=== PATIENT | female | born 1940 | race Caucasian/White ===

== ENCOUNTER 2023-03-21 09:27 | Outpatient (REF) | payer MEDICARE, SELFPAY ==
--- NOTE | ~2023-03-21 | XR_ITS ---
EXAMINATION: XR CHEST CLINICAL INFORMATION: SIADH. Rule out lung lesion. COMPARISON: None available. TECHNIQUE: 2 views of the chest were obtained. FINDINGS: The cardiac and mediastinal contours are normal. There is a 1.7 x 2 cm round density that projects over the right upper lung. It is uncertain whether this is related to right first rib or represents pulmonary nodule. There is pleural-based density seen posterior to the upper sternum or manubrium on the lateral view. The lungs are otherwise clear. No pleural effusion or pneumothorax. Degenerative changes of the spine. XR/XR chest 2V IMPRESSION: 1.7 x 2 cm nodular density projecting over the right upper lung. Follow-up chest CT recommended.
== END 2023-03-21 09:28 | disposition home or self-care (01) ==
LOC: HO.XRAY 09:27
PROVIDERS: PCP Family Medicine; Visit Provider Internal Medicine Gastroenterology
DX: E22.2 Syndrome of inappropriate secretion of antidiuretic hormone (principal); R05.9 Cough, unspecified; K21.9 Gastro-esophageal reflux disease without esophagitis; D49.0 Neoplasm of unspecified behavior of digestive system
CPT/HCPCS: 71046; 99212

== ENCOUNTER 2023-05-23 09:07 | Outpatient (REF) | payer MEDICARE, SELFPAY ==
[2023-05-23 10:59] LABS: Alanine Aminotransferase 28 U/L (0-31); Albumin Level 4.1 g/dL (3.5-5.0); Alkaline Phosphatase 68 U/L (39-117); Anion Gap 12 (12-20); Aspartate Amino Transferase 35 U/L (5-31); Bilirubin Total 0.9 mg/dL (0.0-1.0); Blood Urea Nitrogen 15 mg/dL (9-16); Calcium 9.4 mg/dL (8.4-10.2); Carbon Dioxide 22 mmol/L (22-29); Chloride 106 mmol/L (96-108); Estimated Glomerular Filt Rate > 60; Glucose Random 120 mg/dL (60-115); Potassium 4.6 mmol/L (3.3-5.1); Sodium 135 mmol/L (135-145); Total Protein 6.5 g/dL (6.5-8.0)
== END 2023-05-23 09:08 | disposition home or self-care (01) ==
LOC: HO.LAB 09:07
PROVIDERS: Visit Provider Internal Medicine Gastroenterology
DX: K75.81 Nonalcoholic steatohepatitis (NASH) (principal)
CPT/HCPCS: 36415; 80053

== ENCOUNTER 2023-06-04 07:37 | Outpatient (REF) | payer MEDICARE, SELFPAY ==
--- NOTE | ~2023-06-04 | CT_ITS ---
EXAMINATION: CT CHEST WITH CONTRAST CLINICAL INFORMATION: SIADH. Pulmonary nodule seen on chest x-ray. COMPARISON: Previous chest x-ray February 2023 abdominal MRI 2018 2019 TECHNIQUE: Multidetector volumetric CT imaging of the chest was obtained after the administration of 65 mL of Omnipaque 350 intravenous contrast without immediate adverse reactions. Axial MIP volume rendering provided. Sagittal and coronal reformatted images were obtained. This CT examination was performed using dose optimization techniques as appropriate, variously including the following: *Automated exposure control *Adjustment of mA and/or kV according to patient size (this includes techniques or standardized protocols for targeted exams where dose is matched to indication/reason for exam; i.e. extremities or head) *Use of iterative reconstruction technique DLP: 114 mGy-cm FINDINGS: HAT SIZER: LUNGS: No pulmonary mass or nodule. Chest x-ray finding corresponds to prominent right first rib costochondral cartilage Linear scarring or subsegmental atelectasis in the anterior left upper lobe and bilateral lower lobes at the lung bases. MEDIASTINUM: The heart size is normal. There is moderate coronary artery calcification. No pericardial effusion. No enlarged hilar or mediastinal lymph nodes. Small subcentimeter bilateral thyroid nodules. No imaging follow-up recommended. PLEURA: There is no pleural effusion. No pleural mass or thickening. AXILLA: No lymphadenopathy. UPPER ABDOMEN: The liver is low in attenuation suggestive of fatty infiltration. There is several liver cysts. Largest is a 1.5 cm cyst in the left lobe of the liver. The gallbladder has been removed. There is intrahepatic and extrahepatic biliary duct dilatation. The common bile duct measures 1.6 cm. This is increased from previous MRI. There are innumerable pancreatic cysts. There is mild dilatation of the main pancreatic duct in the head of the pancreas measuring up to 5 minutes. This appears increased from previous MRI as well. OSSEOUS STRUCTURES: Degenerative changes of the spine. CT/CT chest w IV con IMPRESSION: No pulmonary nodule or mediastinal lymphadenopathy. Chest x-ray finding likely corresponds to prominent right first rib costochondral cartilage. Increasing intra and extrahepatic biliary duct dilatation. Increasing dilatation of the main pancreatic duct. Multiple pancreatic cysts. Further evaluation with MR of the pancreas with and without contrast and MRCP recommended. Fleischner guidelines were followed. Findings were indicated by the Benson work flow senior clinical study manager.
[2023-06-04] MEDS: iohexoL 350 MG/ML 100 ML INFUS..BTL IV (08:51)
== END 2023-06-04 07:38 | disposition home or self-care (01) ==
LOC: HO.CT 07:37
PROVIDERS: PCP Family Medicine; Visit Provider Internal Medicine Gastroenterology
DX: E22.2 Syndrome of inappropriate secretion of antidiuretic hormone (principal); R91.1 Solitary pulmonary nodule
CPT/HCPCS: 71260; Q9967

== ENCOUNTER 2023-06-27 09:48 | Outpatient (AMB) | payer MEDICARE, SELFPAY ==
--- NOTE | 2023-06-27 10:01 | MHC.OFFVIS ---
Intake Vital Signs 06/27/23 10:02 Height 5 ft 4 in Weight 130 lb 1.164 oz BMI 22.3 Intake Visit Reasons: 3 mnth follow up Intake Note: Sola presents in the office as a 3 month follow up. CC: She states that she is not having any concerns today. Allergies levofloxacin [From LEVAQUIN] Allergy (Severe, Unverified 06/27/23 10:03) FAINTING metoclopramide [From REGLAN] Allergy (Severe, Unverified 06/27/23 10:03) PERSONALITY CHANGES-COMBATIVE Iodinated Contrast Media [Iodinated Contrast Media - IV Dye] Adverse Reaction (Intermediate, Unverified 06/27/23 10:03) VERTIGO, FLUSHING reglan Allergy (Mild, Uncoded 06/27/23 10:03) Unknown STATins Allergy (Mild, Uncoded 06/27/23 10:03) Unknown IVP DYE Allergy (Unknown, Uncoded 06/27/23 10:03) Unknown HPI 3 mnth follow up HPI Details 82 yr old f wth hx of HLp, HTN, osteoporosis, cholecystectomy, sigmoid colectomy w rectopexy, and asthma being seen for f/u RECAP Initially seen by me 11/2018 for abdo pain and abn bowel habit 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, was gettign serial chromogranin checks last EGD,colo 2019--no recurrence of NET< small tubular adenoma removed she also had hx of imaging with chronic pancreatitis and possible IPMN, slightly dilated panc duct with recent MRI revealing increase in size of cysts in the uncinate and tail of pancreas I ordered a CT chest due to CXR with nodular density and hx of low NA CT chest revealed prominent rib without any lung lesions, scarrign noted, increased biliary dilation and numerous pancreas cysts INTERIM: she has trouble with swallowing, noted mostly solids, ok with liquids which has persisted has metallic taste in mouth still maya sissues with passing stools which is not normal for her still taking colace, and benefiber, not that helpful ongoing qns about pancreas cysts, she doesn;t know what to do EXAM: GENERAL: The patient is relaced VITAL SIGNS:see workflow HEENT: Nonicteric sclerae, PERRLA, EOMI. Oropharynx clear. Moist mucous membranes. Conjunctivae appear well perfused. No thyroid mass. CHEST: Chest wall is nontender. HEART: Regular rate and rhythm without murmurs. LUNGS: Clear to auscultation bilaterally. ABDOMEN: Soft, positive bowel sounds, nontender, no organomegaly.no flank tenderness SKIN: No rash, no excessive bruising, petechiae, or purpura. NEUROLOGIC: Cranial nerves II-XII intact without motor/sensory deficit. A/P; 1/ Constipation, possibly related to hyponatremia but NA improved now 2/ dysgeusia, prob reflux, but on PPI, maybe not be working ddx: esophageal lesion bella with the swallowing issues 3/ IPMN< PD 6 mm, largest cyst about 2 cm on latest MRI scan, she is not keen on surgery (pancreas cysts can also be associated with higher risk for colon polyps and crc)--might need checked for [facility] ([facility]) PLAN: 1/ egd and colo for abn bowel habits, and r/o esophgeal pathology 2/ discussed options with her for pancreas cysts, incl [place] [facility] [facility], or local referral for EUS vs doing nothing, she is concerned about undergoing major surgery given her health issues, she might need whipple with total removal of pancreas given cysts are numerous and thru out the pancreas (CT also with dense coronary calcification) 3/[facility] Surgical History Hx of appendectomy Hx of cholecystectomy History of hip replacement Hx of hysterectomy History of colon resection Hx of colonoscopy History of esophagogastroduodenoscopy (EGD) Physical Exam Vital Signs: BMI result Body Mass Index 22.3 Assessment & Plan Assessment & Plan (1) IPMN (intraductal papillary mucinous neoplasm): Code(s): D49.0 - Neoplasm of unspecified behavior of digestive system Medications: New sodium,potassium,mag sulfates 17.5-3.13-1.6 gram (Suprep Bowel Prep Kit) DILUTE; drink 1/2 at 6-8 pm and half at 11 PM- 1AM 354 mL 0RF Coding Level of Care Code Est Pt Level 4 (10014) Diagnoses IPMN (intraductal papillary mucinous neoplasm) D49.0
[2023-06-27 10:02] VITALS: BMI 22.3
== END 2023-06-27 11:58 | disposition home or self-care (01) ==
PROVIDERS: PCP Family Medicine; Visit Provider Internal Medicine Gastroenterology
DX: D49.0 Neoplasm of unspecified behavior of digestive system (principal)
CPT/HCPCS: 99214

== ENCOUNTER → 2023-06-27 09:48 | Outpatient (BNVA) | payer MEDICARE, SELFPAY | PROVIDERS: PCP Family Medicine; Visit Provider Internal Medicine Gastroenterology | DX: D49.0 Neoplasm of unspecified behavior of digestive system (principal) | CPT/HCPCS: 99212 ==

== ENCOUNTER 2023-07-08 10:08 | Day surgery (SDC) | payer MEDICARE, SELFPAY ==
--- NOTE | 2023-07-04 11:06 | HO.ANESPROP2 ---
Documented by User: Kayla Mann NP 07/04/23 11:08 HPI - Anesthesia Eval Consult details Narrative: 82yo F for Upper Endoscopy and Colonoscopy PMFSH Active Problems Active Problems: All Active Problems (Updated 03/27/23 @ 15:12 by Kennedi Macario MD) Lesion of lung (Acute) GERD (gastroesophageal reflux disease) (Acute) IPMN (intraductal papillary mucinous neoplasm) (Acute) Cough (Acute) SIAD (syndrome of inappropriate antidiuresis) (Acute) Surgical History Surgical History Hx of appendectomy Hx of cholecystectomy History of hip replacement Hx of hysterectomy History of colon resection Hx of colonoscopy History of esophagogastroduodenoscopy (EGD) Social History Social History Patient Tobacco Use Status: Former Tobacco user Smoked in Last 30 Days: No Use of substances other than those prescribed or required for medical reasons: No Are you DNR?: No Advance Directives: No Advance Directives Information Provided: Yes Meds Allergies Allergy/AdvReac Type Severity Reaction Status Date / Time levofloxacin [From LEVAQUIN] Allergy Severe FAINTING Verified 07/08/23 10:27 metoclopramide [From REGLAN] Allergy Severe PERSONALITY Verified 07/08/23 10:27 CHANGES-COMBATIVE Iodinated Contrast Media AdvReac Intermediate VERTIGO, Verified 07/08/23 10:27 [Iodinated Contrast Media - FLUSHING IV Dye] reglan Allergy Mild Unknown Uncoded 07/08/23 10:27 STATins Allergy Mild Muscle Uncoded 07/08/23 10:27 cramps IVP DYE Allergy Unknown Unknown Uncoded 07/08/23 10:27 Home Medications Medication Instructions Recorded Confirmed Last Taken Type allopurinol 300 mg tablet 300 mg PO DAILY 03/21/23 07/08/23 07/08/23 History biotin 10,000 mcg capsule 10,000 mcg PO DAILY 03/21/23 07/08/23 Unknown History doxazosin 2 mg tablet 2 mg PO DAILY 03/21/23 07/08/23 07/08/23 History gabapentin 100 mg capsule 100 mg PO QID 03/21/23 07/08/23 Unknown History montelukast 10 mg tablet 10 mg PO BEDTIME 03/21/23 07/08/23 Unknown History rosuvastatin 20 mg tablet (Crestor) 10 mg PO DAILY 03/21/23 07/08/23 07/08/23 History valsartan 80 mg tablet 80 mg PO BID 03/21/23 07/08/23 07/08/23 History aspirin 81 mg tablet,delayed 81 mg PO .two times a week 06/27/23 07/08/23 07/04/23 History release (Adult Aspirin Regimen) Exam Exam Date and Time: July 04, 2023 1106 Pertinent Lab Results Pertinent Lab Results: Laboratory Tests 05/23/23 09:16 Sodium 135 Potassium 4.6 Chloride 106 Carbon Dioxide 22 BUN 15 Creatinine 0.82 Assessment and Plan Assessment Anesthesia Assessment: Chart Reviewed Documented by User: Monique Anne MD 07/08/23 10:58 PMF Family History Family history of problems with anesthesia: No Surgical History Surgical History Hx of appendectomy Hx of cholecystectomy History of hip replacement Hx of hysterectomy History of colon resection Hx of colonoscopy History of esophagogastroduodenoscopy (EGD) History of Problems with Anesthesia: No Social History Social History Patient Tobacco Use Status: Former Tobacco user Smoked in Last 30 Days: No Use of substances other than those prescribed or required for medical reasons: No Are you DNR?: No Advance Directives: No Advance Directives Information Provided: Yes Meds Allergies Allergy/AdvReac Type Severity Reaction Status Date / Time levofloxacin [From LEVAQUIN] Allergy Severe FAINTING Verified 07/08/23 10:27 metoclopramide [From REGLAN] Allergy Severe PERSONALITY Verified 07/08/23 10:27 CHANGES-COMBATIVE Iodinated Contrast Media AdvReac Intermediate VERTIGO, Verified 07/08/23 10:27 [Iodinated Contrast Media - FLUSHING IV Dye] reglan Allergy Mild Unknown Uncoded 07/08/23 10:27 STATins Allergy Mild Muscle Uncoded 07/08/23 10:27 cramps IVP DYE Allergy Unknown Unknown Uncoded 07/08/23 10:27 Home Medications Medication Instructions Recorded Confirmed Last Taken Type allopurinol 300 mg tablet 300 mg PO DAILY 03/21/23 07/08/23 07/08/23 History biotin 10,000 mcg capsule 10,000 mcg PO DAILY 03/21/23 07/08/23 Unknown History doxazosin 2 mg tablet 2 mg PO DAILY 03/21/23 07/08/23 07/08/23 History gabapentin 100 mg capsule 100 mg PO QID 03/21/23 07/08/23 Unknown History montelukast 10 mg tablet 10 mg PO BEDTIME 03/21/23 07/08/23 Unknown History rosuvastatin 20 mg tablet (Crestor) 10 mg PO DAILY 03/21/23 07/08/23 07/08/23 History valsartan 80 mg tablet 80 mg PO BID 03/21/23 07/08/23 07/08/23 History aspirin 81 mg tablet,delayed 81 mg PO .two times a week 06/27/23 07/08/23 07/04/23 History release (Adult Aspirin Regimen) Exam Airway Mallampati Class: II TM Dist: >3cm Neck ROM: Limited Denture: Upper Heart: rrr Lungs: cta Assessment and Plan Assessment Anesthesia Assessment: Anesthesia Plan Discussed Final Anesthetic Review Family History of Problems with Anesthesia: No History of Problems with Anesthesia: No NPO: Yes ASA Class: III Final Preanesthetic Review: No Changes in Pt Med Stat, Meds/Allgs Chart Reviewed, Consent Obtained/Reviewed and Anes Risks/Benef Reviewed Patient Risk: Low Procedure Risk: Low Anesthetic Plan Anesthetic Plan: MAC: Disposition: Standard PACU
[2023-07-08 10:24] VITALS: BMI 22.3
[2023-07-08 10:36] VITALS: BP 180/67; PULSE 81; RESP 16; TEMP 36.3; O2SAT 98
--- NOTE | 2023-07-08 11:03 | MHC.SHP ---
Pre-Procedural Eval Section A Date of Service: 07/08/23 The patient is an INPATIENT: No The History & Physical has been completed within 30 days and I have reviewed it.: Yes Section B Chief Complaint: Dysphagia, pharyngoesophageal phase,constipation Allergies: Allergies Allergy/AdvReac Type Severity Reaction Status Date / Time levofloxacin [From LEVAQUIN] Allergy Severe FAINTING Verified 07/08/23 10:27 metoclopramide [From REGLAN] Allergy Severe PERSONALITY Verified 07/08/23 10:27 CHANGES-COMBATIVE Iodinated Contrast Media AdvReac Intermediate VERTIGO, Verified 07/08/23 10:27 [Iodinated Contrast Media - FLUSHING IV Dye] reglan Allergy Mild Unknown Uncoded 07/08/23 10:27 STATins Allergy Mild Muscle Uncoded 07/08/23 10:27 cramps IVP DYE Allergy Unknown Unknown Uncoded 07/08/23 10:27 Plan Diagnosis/Plan: Unchanged I have reviewed the history and physical and performed a pertinent physical examination on my patient. No changes have occurred unless specified. EGD,colo Time Spent With Patient Time: Total time managing care of this patient today ____ minutes.
--- NOTE | 2023-07-08 11:04 | W.PM.OPN ---
Operative Note Operative Note Date of Service: 07/08/23 Narrative: Operative Information Procedure Description: EGD, Colonoscopy Indication: dysphagia, hx of colon polyps and duodenal NET Anesthesia: MAC FLEXIBLE TRANSORAL UPPER GASTROINTESTINAL ENDOSCOPY AND COLONOSCOPY PROCEDURE NOTE UPPER ENDOSCOPY Consent: Indications for the procedure and potential complications of bleeding, perforation, reaction to medications and missed diagnosis were discussed with the patient and informed consent was obtained. Instrument: Olympus GIF H 190 J mid size upper endoscope Monitoring: Vital signs and clinical assessment, continuous EKG monitoring, Pulse oximetry, Carbon Dioxide monitoring and blood pressure monitoring were done throughout the procedure. Procedure: The patient was placed in the left lateral decubitis position and pre-procedure medications were administered and a bite block was placed. The endoscope was inserted into the mouth and advanced under direct vision to the third part of duodenum. A careful inspection was made as the upper endoscope was withdrawn including a retroflexed examination of the proximal stomach; Findings and interventions are described below. Findings: Larynx:normal Esophagus: GE junction at 37 cm, diaphragm hiatus at 37 cm, some slough and erythema at GEJ, consistent with erosive esophagitis, balloon dilation at LES and UES to 18 mm, no tears seen, bx taken from distal esophagus and GEJ Stomach: Patchy erythema and scarring. Biopsies were obtained. Grade 2 flap valve on retroflexed examination of the cardia. Duodenum: 5-7 mm sessile polyp noted below the papilla, and this was removed with cold snare, random duodenum bx taken Intervention: Biopsies as noted above COLONOSCOPY Instrument: Olympus variable stiffness pediatric scope 190L Colonoscopy Monitoring: Vital signs and clinical assessment, continuous EKG monitoring, Pulse oximetry, Carbon Dioxide monitoring and blood pressure monitoring were done throughout the procedure. Colon withdrawal time was 12 minutes. Procedure: The patient was placed in the left lateral decubitis position and pre-procedure medications were administered. After a digital rectal examination of the ano-rectum, the video colonoscope was inserted into the rectum and advanced through the colon to the cecum/TI. The colonoscope was slowly withdrawn in a retrograde panoramic fashion and the colon mucosa was carefully examined including a retroflexed view of the rectum. Findings and interventions are described below. Procedure Difficulty:moderate Findings: Terminal Ileum-not intubated due to looping Cecum:normal Ascending Colon: 4-5 mm sessile polyp removed with cold forceps Transverse Colon - x 2 sessile polyps 9-11 mm removed with cold snare Descending Colon:normal Sigmoid Colon: normal Rectum: Retroflexion with small internal hemorrhoids, grade I Anorectum - normal Colon preparation: Miracle Bowel Preparation Scale Right colon; 2 Transverse colon: 2 Left colon; 2 (0 = Unprepared colon segment with mucosa not seen due to solid stool that cannot be cleared. 1 = Portion of mucosa of the colon segment seen, but other areas of the colon segment not well seen due to staining, residual stool and/or opaque liquid. 2 = Minor amount of residual staining, small fragments of stool and/or opaque liquid, but mucosa of colon segment seen well. 3 = Entire mucosa of colon segment seen well with no residual staining, small fragments of stool or opaque liquid) Impression and Post Procedure Diagnosis: Endoscopy Findings: duodenal polyp atrophic gastritis esophagitis Colonoscopy Findings: polyps internal hemorrhoids Plan: Await Pathology results Repeat Colonoscopy in 4-5 years if health allows or earlier if clinically indicated High fiber diet leaflet avoid straining at stool, epsom salts and sitz bath, anusol supps or cream Repeat EGD in 2-3 yrs due to hx of NET Above findings were reviewed with the patient and relevant handouts were provided if indicated.
[2023-07-08 12:08] VITALS: BP 98/47; PULSE 87; RESP 16; TEMP 36.2; O2SAT 97
[2023-07-08 12:23] VITALS: BP 145/52; PULSE 88; RESP 18; O2SAT 97
[2023-07-08 12:38] VITALS: BP 146/59; PULSE 78; RESP 18; O2SAT 97
[2023-07-08 12:53] VITALS: BP 166/63; PULSE 82; RESP 18; TEMP 36.2; O2SAT 98
== END 2023-07-08 13:44 | disposition home or self-care (01) ==
PROVIDERS: PCP Family Medicine; Visit Provider Internal Medicine Gastroenterology
PROC: (CPT 45385; principal; 2023-07-08 15:10)
DX: Z12.11 Encounter for screening for malignant neoplasm of colon (principal); Z86.010 Personal history of colon polyps; D12.2 Benign neoplasm of ascending colon; D12.3 Benign neoplasm of transverse colon; K64.0 First degree hemorrhoids; R13.14 Dysphagia, pharyngoesophageal phase; K59.00 Constipation, unspecified; K20.80 Other esophagitis without bleeding; K29.40 Chronic atrophic gastritis without bleeding; K31.7 Polyp of stomach and duodenum; K44.9 Diaphragmatic hernia without obstruction or gangrene; D49.0 Neoplasm of unspecified behavior of digestive system; I10 Essential (primary) hypertension; E78.5 Hyperlipidemia, unspecified; J45.909 Unspecified asthma, uncomplicated; M81.0 Age-related osteoporosis without current pathological fracture; Z79.899 Other long term (current) drug therapy; Z79.82 Long term (current) use of aspirin; Z88.1 Allergy status to other antibiotic agents; Z88.8 Allergy status to other drugs, medicaments and biological substances; Z91.041 Radiographic dye allergy status; Z90.49 Acquired absence of other specified parts of digestive tract; Z87.891 Personal history of nicotine dependence
CPT/HCPCS: 45385; 45380; 43249; 43251; 43239; 88305; 88342; C1726

== ENCOUNTER → 2023-07-08 10:08 | Outpatient (BNV) | payer MEDICARE, SELFPAY | PROVIDERS: PCP Family Medicine; Visit Provider Internal Medicine Gastroenterology | DX: Z12.11 Encounter for screening for malignant neoplasm of colon (principal); Z86.010 Personal history of colon polyps; R13.14 Dysphagia, pharyngoesophageal phase; K31.7 Polyp of stomach and duodenum; D12.2 Benign neoplasm of ascending colon; D12.3 Benign neoplasm of transverse colon; K64.0 First degree hemorrhoids | CPT/HCPCS: 43249; 45380; 45385 ==

== ENCOUNTER 2023-07-25 12:20 | Outpatient (AMB) | payer MEDICARE, SELFPAY ==
--- NOTE | 2023-07-25 12:26 | A.OFFVIS_ITS ---
Intake Vital Signs 07/25/23 12:30 Height 5 ft 4 in Weight 128 lb BMI 22.0 BP 175/72 H Blood Pressure Location Lt brachial Position Sitting Pulse 82 Intake Visit Reasons: S/P Double; Dr. Macario Intake Note: Patient follow up for EGD/Colonoscopy results. Patient denies any GI issues for today. Store Team Member Required: No Accompanied by: Spouse Allergies levofloxacin [From LEVAQUIN] Allergy (Severe, Verified 07/25/23 12:25) FAINTING metoclopramide [From REGLAN] Allergy (Severe, Verified 07/25/23 12:25) PERSONALITY CHANGES-COMBATIVE Iodinated Contrast Media [Iodinated Contrast Media - IV Dye] Adverse Reaction (Intermediate, Verified 07/25/23 12:25) VERTIGO, FLUSHING reglan Allergy (Mild, Uncoded 07/08/23 10:27) Unknown STATins Allergy (Mild, Uncoded 07/08/23 10:27) Muscle cramps IVP DYE Allergy (Unknown, Uncoded 07/08/23 10:27) Unknown HPI S/P Double; Dr. 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, was gettign serial chromogranin checks last EGD,o 2019--no recurrence of NET< small tubular adenoma removed she also had hx of imaging with chronic pancreatitis and possible IPMN, slightly dilated panc duct with recent MRI revealing increase in size of cysts in the uncinate and tail of pancreas I ordered a CT chest due to CXR with nodular density and hx of low NA CT chest revealed prominent rib without any lung lesions, scarrign noted, increased biliary dilation and numerous pancreas cysts EGD/Colonoscopy;06/2023 Endoscopy Findings: duodenal polyp atrophic gastritis esophagitis Colonoscopy Findings: polyps internal hemorrhoids Pathology; A. Duodenum, polyp: Superficial fragments of denuded small intestinal mucosa with focal active inflammation; negative for dysplasia. B. Duodenum, biopsy: Duodenal mucosa within normal limits. C. Stomach, biopsy: Antral-type and oxyntic mucosa within normal limits; no Helicobacter organisms seen. D. EG junction, biopsy: - Cardiac-type mucosa with moderate cotton classer aide adriana active inflammation and ulceration; no intestinal metaplasia seen. - Ulcerative esophagitis. E. Esophagus, distal, biopsy: Squamous epithelium within normal limits; no inflammation seen. F. Colon, transverse, polypectomies: Tubular adenomata; negative for high-grade dysplasia or carcinoma. G. Colon, ascending polyp, biopsy: Tubular adenoma; negative for high-grade dysplasia or carcino INTERIM: She still has trouble swallowing, metallic taste in mouth persists she still has constipation issues appetite is fair weight stable has apptm with oncology to discuss her panc cysts EXAM: GENERAL: The patient is relaced VITAL SIGNS:see workflow HEENT: Nonicteric sclerae, PERRLA, EOMI. Oropharynx clear. Moist mucous membranes. Conjunctivae appear well perfused. No thyroid mass. CHEST: Chest wall is nontender. HEART: Regular rate and rhythm without murmurs. LUNGS: Clear to auscultation bilaterally. ABDOMEN: Soft, positive bowel sounds, nontender, no organomegaly.no flank tenderness SKIN: No rash, no excessive bruising, petechiae, or purpura. NEUROLOGIC: Cranial nerves II-XII intact without motor/sensory deficit. A/P; 1/ Constipation, 2/ dysgeusia, prob reflux, on PPI--was c hanged to esomeprazole 3/ IPMN< PD 6 mm, largest cyst about 2 c m on latest MRI scan, she is not keen on surgery (pancreas cysts can also be associated with higher risk for colon polyps and crc)--might need checked for [facility] ([facility] [place]) PLAN: 1/ add pepcid at night 2/ advised to take miraalx scheduled, th ree times a week 3/ if ongoing sx then change PPI, maybe get GES PFSH Surgical History Hx of appendectomy Hx of cholecystectomy History of hip replacement Hx of hysterectomy History of colon resection Hx of colonoscopy History of esophagogastroduodenoscopy (EGD) Social History Patient Tobacco Use Status: Former Tobacco user Assessment & Plan Assessment & Plan (1) GERD (gastroesophageal reflux disease): Code(s): K21.9 - Gastro-esophageal reflux disease without esophagitis Medications: New famotidine (Pepcid) 40 mg PO BEDTIME 90 tabs 2RF Coding Level of Care Code Est Pt Level 3 (85602) Diagnoses GERD (gastroesophageal reflux disease) K21.9
[2023-07-25 12:30] VITALS: BP 175/72; PULSE 82; BMI 22.0
== END 2023-07-25 13:15 | disposition home or self-care (01) ==
PROVIDERS: PCP Family Medicine; Visit Provider Internal Medicine Gastroenterology
DX: K21.9 Gastro-esophageal reflux disease without esophagitis (principal)
CPT/HCPCS: 99213

== ENCOUNTER → 2023-07-25 12:20 | Outpatient (BNVA) | payer MEDICARE, SELFPAY | PROVIDERS: PCP Family Medicine; Visit Provider Internal Medicine Gastroenterology | DX: K21.9 Gastro-esophageal reflux disease without esophagitis (principal) | CPT/HCPCS: 99212 ==

== ENCOUNTER 2023-12-12 10:44 | Outpatient (REF) | payer MEDICARE, SELFPAY ==
--- NOTE | ~2023-12-12 | XR_ITS ---
EXAMINATION: XR ABDOMEN KUB CLINICAL INDICATION: Constipation unspecified. COMPARISON: MRI abdomen of 04/14/2020. TECHNIQUE: 2 AP views of the abdomen. FINDINGS: Advanced degenerative changes in the imaged thoracolumbar spine. Surgical clips in the right upper quadrant of the abdomen. Right total hip prosthesis partially imaged. Advanced degenerative changes with irregularly-shaped sclerotic focus overlying the left hip should be evaluated with dedicated views of the hip. Surgical sutures overlie the pelvis. Asymmetric sclerotic focus overlies the upper aspect of the sacrum/iliac wing on the left. Dedicated images of the pelvis recommended for further evaluation. Advanced degenerative changes in the axs-uq-bjyjm lumbar spine. Paqtzqxb-lo-dgstb amount of stool in the colon. Nonobstructive bowel gas pattern. XR/XR KUB IMPRESSION: 1. Zasgfihk-bo-gqahi amount of stool in the colon. Nonobstructive bowel gas pattern. 2. Advanced degenerative changes with irregularly shaped sclerotic focus overlying the left hip. Asymmetric sclerotic focus overlies the upper aspect of the sacrum/iliac wing on the left. Dedicated images of the pelvis and left hip are recommended for further evaluation.
== END 2023-12-12 10:45 | disposition home or self-care (01) ==
LOC: HO.XRAY 10:44
PROVIDERS: PCP Family Medicine; Visit Provider Internal Medicine Gastroenterology
DX: K59.00 Constipation, unspecified (principal)
CPT/HCPCS: 74018; 99212

== ENCOUNTER 2023-12-12 10:44 | Outpatient (AMB) | payer MEDICARE, SELFPAY ==
--- NOTE | 2023-12-12 10:54 | A.OFFVIS_ITS ---
Intake Vital Signs 12/12/23 10:55 Height 5 ft 4 in Weight 125 lb BMI 21.5 BP 166/84 H Blood Pressure Location Lt brachial Position Sitting Pulse 94 Intake Visit Reasons: 5 month follow up Intake Note: Patient follow up for GERD. Patient denies any GI issues just headaches for today. 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 Accompanied by: Self / Same As Patient Allergies levofloxacin [From LEVAQUIN] Allergy (Severe, Verified 12/12/23 10:54) FAINTING metoclopramide [From REGLAN] Allergy (Severe, Verified 12/12/23 10:54) PERSONALITY CHANGES-COMBATIVE Iodinated Contrast Media [Iodinated Contrast Media - IV Dye] Adverse Reaction (Intermediate, Verified 12/12/23 10:54) VERTIGO, FLUSHING reglan Allergy (Mild, Uncoded 07/08/23 10:27) Unknown STATins Allergy (Mild, Uncoded 07/08/23 10:27) Muscle cramps IVP DYE Allergy (Unknown, Uncoded 07/08/23 10:27) Unknown HPI 5 month follow up HPI Details 83 yr old f wth hx of HLp, HTN, osteopor osis, cholecystectomy, sigmoid colectomy w rectopexy, and asthma being seen for f/u RECAP Initially seen by me 11/2018 for abdo pain and abn bowel habit 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, was gettign serial chromogranin checks last EGD,o 2019--no recurrence of NET< small tubular adenoma removed she also had hx of imaging with chronic pancreatitis and possible IPMN, slightly dilated panc duct with recent MRI revealing increase in size of cysts in the uncinate and tail of pancreas I ordered a CT chest due to CXR with nodular density and hx of low NA CT chest revealed prominent rib without any lung lesions, scarrign noted, increased biliary dilation and numerous pancreas cysts EGD/Colonoscopy;06/2023 Endoscopy Findings: duodenal polyp atrophic gastritis esophagitis Colonoscopy Findings: polyps internal hemorrhoids Pathology; A. Duodenum, polyp: Superficial fragments of denuded small intestinal mucosa with focal active inflammation; negative for dysplasia. B. Duodenum, biopsy: Duodenal mucosa within normal limits. C. Stomach, biopsy: Antral-type and oxyntic mucosa within normal limits; no Helicobacter organisms seen. D. EG junction, biopsy: - Cardiac-type mucosa with moderate energy economist adriana active inflammation and ulceration; no intestinal metaplasia seen. - Ulcerative esophagitis. E. Esophagus, distal, biopsy: Squamous epithelium within normal limits; no inflammation seen. F. Colon, transverse, polypectomies: Tubular adenomata; negative for high-grade dysplasia or carcinoma. G. Colon, ascending polyp, biopsy: Tubular adenoma; negative for high-grade dysplasia or carcino SHe passed out and had EGD and sigmoidoscopy 08/21 at [facility] path was consistent with ischemic colitis INTERIM: she has not noted any trouble swallowing she has ongoing constipation issues she dislikes taking laxatives, feels no happy medium still has taste in her mouth-metallic appetite is fair weight stable seeing Dr Trivedi at [facility] -oncology, f/u pending EXAM: GENERAL: The patient is relaxed VITAL SIGNS:see workflow HEENT: Nonicteric sclerae, PERRLA, EOMI. Oropharynx clear. Moist mucous membranes. Conjunctivae appear well perfused. No thyroid mass. CHEST: Chest wall is nontender. HEART: Regular rate and rhythm without murmurs. LUNGS: Clear to auscultation bilaterally. ABDOMEN: Soft, positive bowel sounds, tender LUQ and central abdomen, no organomegaly.no flank tenderness SKIN: No rash, no excessive bruising, petechiae, or purpura. NEUROLOGIC: Cranial nerves II-XII intact without motor/sensory deficit. A/P; 1/ Constipation, not keen on medical cortez atment, ischemic colitis prob secondary to this 2/ dysgeusia, prob reflux, on PPI--was c hanged to esomeprazole 3/ IPMN< PD 6 mm, largest cyst about 2 c m on latest MRI scan, she is not keen on surgery (pancreas cysts can also be associated with higher risk for colon polyps and crc)--might need checked for [facility] ([place])--following with oncology at [facility] PLAN: 1/ advised on etiology of ischemic colit is, prob related to constipation, but shoudl check her BP at home from time to time and make sure BP not running low 2/ she will try prune juice 3/ f/u oncology for pancreas cysts and N ET 4/ KUB [facility] Surgical History Hx of appendectomy Hx of cholecystectomy History of hip replacement Hx of hysterectomy History of colon resection Hx of colonoscopy History of esophagogastroduodenoscopy (EGD) Social History Patient Tobacco Use Status: Former Tobacco user Physical Exam Vital Signs: Last Vital Signs Pulse 94 12/12/23 10:55 BP 166/84 H 12/12/23 10:55 BMI result Body Mass Index 21.5 Assessment & Plan Assessment & Plan (1) Constipation: Code(s): K59.00 - Constipation, unspecified Plan: PLAN: 1/ advised on etiology of ischemic colitis, prob related to constipation, but shoudl check her BP at home from time to time and make sure BP not running low 2/ she will try prune juice 3/ f/u oncology for pancreas cysts and NET Orders: Orders XR KUB Today K59.00 - Constipation, unspecified Coding Level of Care Code Est Pt Level 4 (45029) Diagnoses Constipation K59.00
[2023-12-12 10:55] VITALS: BP 166/84; PULSE 94; BMI 21.5
== END 2023-12-12 11:39 | disposition home or self-care (01) ==
PROVIDERS: PCP Family Medicine; Visit Provider Internal Medicine Gastroenterology
DX: K59.00 Constipation, unspecified (principal)
CPT/HCPCS: 99214

== ENCOUNTER 2024-06-11 10:51 | Outpatient (AMB) | payer MEDICARE, SELFPAY ==
--- NOTE | 2024-06-11 10:52 | MHC.OFFVIS ---
Vital Signs 06/11/24 10:53 Height 5 ft 4 in Weight 130 lb 1.164 oz BMI 22.3 BP 203/78 H Blood Pressure Location Rt radial Position Sitting Pulse 62 Intake Visit Reasons: 6 mnth follow up Intake Note: Sola presents in the office as a 6 month follow up. CC: She states that she is just here for a follow up. 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 Allergies levofloxacin [From LEVAQUIN] Allergy (Severe, Verified 06/11/24 10:53) FAINTING metoclopramide [From REGLAN] Allergy (Severe, Verified 06/11/24 10:53) PERSONALITY CHANGES-COMBATIVE Iodinated Contrast Media [Iodinated Contrast Media - IV Dye] Adverse Reaction (Intermediate, Verified 06/11/24 10:53) VERTIGO, FLUSHING reglan Allergy (Mild, Uncoded 06/11/24 10:53) Unknown STATins Allergy (Mild, Uncoded 06/11/24 10:53) Muscle cramps IVP DYE Allergy (Unknown, Uncoded 06/11/24 10:53) Unknown HPI HPI 6 mnth follow up: Details: 83 yr old f wth hx of HLp, HTN, osteoporosis, cholecystectomy, sigmoid colectomy w rectopexy, and asthma being seen for f/u RECAP Initially seen by me 11/2018 for abdo pain and abn bowel habit 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, was gettign serial chromogranin checks last EGD,o 2019--no recurrence of NET< small tubular adenoma removed she also had hx of imaging with chronic pancreatitis and possible IPMN, slightly dilated panc duct with recent MRI revealing increase in size of cysts in the uncinate and tail of pancreas I ordered a CT chest due to CXR with nodular density and hx of low NA CT chest revealed prominent rib without any lung lesions, scarrign noted, increased biliary dilation and numerous pancreas cysts EGD/Colonoscopy;06/2023 Endoscopy Findings: duodenal polyp atrophic gastritis esophagitis Colonoscopy Findings: polyps internal hemorrhoids Pathology; A. Duodenum, polyp: Superficial fragments of denuded small intestinal mucosa with focal active inflammation; negative for dysplasia. B. Duodenum, biopsy: Duodenal mucosa within normal limits. C. Stomach, biopsy: Antral-type and oxyntic mucosa within normal limits; no Helicobacter organisms seen. D. EG junction, biopsy: - Cardiac-type mucosa with moderate chronic active inflammation and ulceration; no intestinal metaplasia seen. - Ulcerative esophagitis. E. Esophagus, distal, biopsy: Squamous epithelium within normal limits; no inflammation seen. F. Colon, transverse, polypectomies: Tubular adenomata; negative for high-grade dysplasia or carcinoma. G. Colon, ascending polyp, biopsy: Tubular adenoma; negative for high-grade dysplasia or carcino SHe passed out and had EGD and sigmoidoscopy 08/21 at [facility] path was consistent with ischemic colitis INTERIM: She has high BP today with headache she has high chromogranin and awaiting PET scan no abdominal pain no nausea or vomiing EXAM: GENERAL: The patient is relaxed VITAL SIGNS:see workflow HEENT: Nonicteric sclerae, PERRLA, EOMI. Oropharynx clear. Moist mucous membranes. Conjunctivae appear well perfused. No thyroid mass. soft bruit left carotid CHEST: Chest wall is nontender. HEART: Regular rate and rhythm without murmurs. LUNGS: Clear to auscultation bilaterally. ABDOMEN: Soft, positive bowel sounds, tender LUQ and central abdomen, no organomegaly.no flank tenderness SKIN: No rash, no excessive bruising, petechiae, or purpura. NEUROLOGIC: Cranial nerves II-XII intact without motor/sensory deficit. A/P; 1/ High chromogranin awaiting PET 2/ IPMN< PD 6 mm, largest cyst about 4.3 cm in uncinate process, simple appearing and thinly septated, small filling defect in distsl cbd ?stone PLAN: 1/ discussed about referral for EUS can eval CBD and pancreas at same time but she is very wary of any further intervention and is worried about major surgeries given her age and co morbidities --she is amenable to referral to pancreas cyst center, ? maybe can offer alcohol or chemo ablation if IPMN confirmed on FNA/FNB 2/ She is awaiting PET scan, chromogranin A is v high, could also be from pancreatic NET< will await PET results 3/ Hypertensive urgency, refer ED 4/ she may have small CBD stone, no sx, will hold on ERCP right now as there are a lot of other issues to contend with [facility] Surgical History Hx of appendectomy Hx of cholecystectomy History of hip replacement Hx of hysterectomy History of colon resection Hx of colonoscopy History of esophagogastroduodenoscopy (EGD) Social History Patient Tobacco Use Status: Former Tobacco user Physical Exam Vital Signs: Last Vital Signs Pulse 62 06/11/24 10:53 BP 203/78 H 06/11/24 10:53 BMI result Body Mass Index 22.3 Assessment & Plan Assessment & Plan (1) IPMN (intraductal papillary mucinous neoplasm): Code(s): D49.0 - Neoplasm of unspecified behavior of digestive system Category: Medical Plan: see above Orders: Referrals Gastroenterology Referral D49.0 - Neoplasm of unspecified behavior of digestive system Coding Level of Care Code Est Pt Level 4 (31712) Diagnoses IPMN (intraductal papillary mucinous neoplasm) D49.0
[2024-06-11 10:53] VITALS: BP 203/78; PULSE 62; BMI 22.3
== END 2024-06-11 12:35 | disposition home or self-care (01) ==
PROVIDERS: PCP Family Medicine; Visit Provider Internal Medicine Gastroenterology
DX: D49.0 Neoplasm of unspecified behavior of digestive system (principal)
CPT/HCPCS: 99214

== ENCOUNTER → 2024-06-11 10:51 | Outpatient (BNVA) | payer MEDICARE, SELFPAY | PROVIDERS: PCP Family Medicine; Visit Provider Internal Medicine Gastroenterology ==

== ENCOUNTER 2024-06-11 12:00 | Inpatient (IN) | payer MEDICARE, SELFPAY ==
[2024-06-11] VITALS (17 sets, daily range): BP systolic 99–245; BP diastolic 41–88; PULSE 61–84; RESP 12–18; TEMP 36.6–37; O2SAT 96–100; BMI 21.6
--- NOTE | ~2024-06-11 | CT_ITS ---
EXAMINATION: CT HEAD WITHOUT CONTRAST CLINICAL INFORMATION: Headache. COMPARISON: None available. TECHNIQUE: Contiguous axial imaging was performed from the skull base to vertex without intravenous administration of contrast. This CT examination was performed using dose optimization techniques as appropriate, variously including the following: *Automated exposure control *Adjustment of mA and/or kV according to patient size (this includes techniques or standardized protocols for targeted exams where dose is matched to indication/reason for exam; i.e. extremities or head) *Use of iterative reconstruction technique DLP: 587 mGy-cm FINDINGS: There is no acute intracranial hemorrhage. There is no evidence of acute/subacute cerebral or cerebellar infarction. There is no midline shift or mass effect. No extra-axial fluid collection. The ventricles are normal in size. There is mild microvascular ischemic change. There is a chronic right basal ganglia lacunar infarction. There is a chronic left basal ganglia lacunar infarction. The ocular lenses are surgically absent. The calvarium is intact. The mastoid air cells are well aerated. Visualized paranasal sinuses are clear. CT/CT head/brain wo IV con IMPRESSION: No acute intracranial abnormality. Mild microvascular ischemic change. Chronic bilateral basal ganglia lacunar infarctions. Electronically signed by: Lennox Roth DO 06/11/2024 02:01 PM EDT
--- NOTE | ~2024-06-11 | US_ITS ---
EXAMINATION: ULTRASOUND OF KIDNEYS WITH RENAL ARTERY DOPPLER CLINICAL INFORMATION: Refractory hypertension. COMPARISON: MRI abdomen 04/14/2020. TECHNIQUE: Ultrasound of the kidneys was performed along with color flow Doppler imaging and velocity measurements in the proximal mid and distal renal arteries. Aortic velocities were measured and renal/aortic ratios were calculated. Segmental resistive indices were obtained. FINDINGS: Both kidneys have a lobular border with the right kidney measuring 9.4 x 5.4 x 4.7 cm and the left kidney measuring 11.7 x 4.6 x 4.2 cm. No renal stones or hydronephrosis is seen. Multiple benign Bosniak class I renal cysts on the left which require no additional imaging or follow-up. No solid renal masses are seen. Renal cortical thickness appears normal. There was limited evaluation of the renal vasculature as neither mid renal artery could not be seen. Velocity measurements in the proximal and distal renal arteries are normal with the exception of mild elevation distally on the right. Segmental resistive indices are mildly elevated bilaterally with the highest value of 0.85) 0.80 upper limits of normal). US/US renal BI IMPRESSION: 1. Limited study as the mid renal arteries could not be seen. 2. There is suggestion of some mild elevation of the segmental resistive indices bilaterally. 3. The kidneys are lobular in contour but otherwise normal in appearance. 4. No evidence to suggest renal artery stenosis. 5. The right kidney is smaller than the left and has a lobular border. It is unclear whether this is a true finding. CT angiography could be performed for further evaluation if there is a high index of suspicion for renal artery stenosis. Electronically signed by: Carlos Portillo MD 06/12/2024 06:38 PM EDT
--- NOTE | ~2024-06-11 | US_ITS ---
EXAMINATION: ULTRASOUND OF KIDNEYS WITH RENAL ARTERY DOPPLER CLINICAL INFORMATION: Refractory hypertension. COMPARISON: MRI abdomen 04/14/2020. TECHNIQUE: Ultrasound of the kidneys was performed along with color flow Doppler imaging and velocity measurements in the proximal mid and distal renal arteries. Aortic velocities were measured and renal/aortic ratios were calculated. Segmental resistive indices were obtained. FINDINGS: Both kidneys have a lobular border with the right kidney measuring 9.4 x 5.4 x 4.7 cm and the left kidney measuring 11.7 x 4.6 x 4.2 cm. No renal stones or hydronephrosis is seen. Multiple benign Bosniak class I renal cysts on the left which require no additional imaging or follow-up. No solid renal masses are seen. Renal cortical thickness appears normal. There was limited evaluation of the renal vasculature as neither mid renal artery could not be seen. Velocity measurements in the proximal and distal renal arteries are normal with the exception of mild elevation distally on the right. Segmental resistive indices are mildly elevated bilaterally with the highest value of 0.85) 0.80 upper limits of normal). US/US renal doppler IMPRESSION: 1. Limited study as the mid renal arteries could not be seen. 2. There is suggestion of some mild elevation of the segmental resistive indices bilaterally. 3. The kidneys are lobular in contour but otherwise normal in appearance. 4. No evidence to suggest renal artery stenosis. 5. The right kidney is smaller than the left and has a lobular border. It is unclear whether this is a true finding. CT angiography could be performed for further evaluation if there is a high index of suspicion for renal artery stenosis. Electronically signed by: Carlos Portillo MD 06/12/2024 06:38 PM EDT
--- NOTE | ~2024-06-11 | US_ITS ---
EXAMINATION: US EXTRACRANIAL CAROTID DUPLEX, BILATERAL CLINICAL INFORMATION: Bruit COMPARISON: None available. TECHNIQUE: Real-time ultrasound and Doppler techniques (integrating B-mode 2-D vascular images, Doppler spectral analysis and color-flow Doppler imaging) were utilized to interrogate the extracranial carotid arteries, the vertebral arteries and proximal subclavian arteries bilaterally. The degree of stenosis is determined by criteria similar to NASCET. FINDINGS: Right Side: 1. There is mild atherosclerotic plaque seen in the bifurcation/proximal ICA region. 2. The common carotid artery PSV proximally is 106 cm/s and distally 102 cm/s. 3. The proximal internal carotid artery velocities are 142 cm/s systolic and 29 cm/s diastolic. 4. The proximal external carotid artery PSV is 248 cm/s. 5. The vertebral artery shows antegrade flow. 6. The subclavian artery waveforms are normal. Left Side: 1. There is moderate atherosclerotic plaque seen in the bifurcation/proximal ICA region. 2. The common carotid artery PSV proximally is 96 cm/s and distally 102 cm/s. 3. The proximal internal carotid artery velocities are 284 cm/s systolic and 50 cm/s diastolic. 4. The proximal external carotid artery PSV is 279 cm/s. 5. The vertebral artery shows antegrade flow. 6. The subclavian artery waveforms are normal. US/US carotid duplex BI IMPRESSION: 1. 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 2. LEFT: Moderate, hemodynamically significant stenosis of the proximal left internal carotid artery corresponding to a 50-79% stenosis by velocity criteria. Electronically signed by: Farhad Boggs MD 06/12/2024 04:40 PM EDT
--- NOTE | ~2024-06-11 | MR_ITS ---
EXAMINATION: MR ANGIOGRAPHY ABDOMEN WITHOUT AND WITH CONTRAST CLINICAL INFORMATION: Mildly elevated resistive indices bilaterally with nonvisualization of the renal arteries on ultrasound. COMPARISON: Renal Doppler 06/12/2024. CT chest 06/04/2023. MR abdomen 04/14/2020. TECHNIQUE: Routine pulse sequences were performed both before and after the administration of 20 mL of Gadavist. Images were evaluated on an independent dedicated 3-D workstation and 3-D images were reconstructed with concurrent radiologist supervision and subsequently interpreted. VASCULAR FINDINGS: Some minimal atherosclerotic changes are present in the abdominal aorta without aneurysm or dissection. The common iliac arteries are widely patent. On the left, there is an eccentric stenosis in the distal common iliac artery with widely patent internal iliac artery and external iliac artery. Moderate eccentric stenosis is present at the left common femoral artery. The fundus is patent. There is mild stenosis at the origin of the left SFA. On the right, the common iliac artery is widely patent. The internal iliac artery is widely patent. The external iliac artery is widely patent. Common femoral artery shows a mild stenosis with eccentric plaque. A stenosis is present at the origin of the profunda femoris. Mild stenosis at the origin of the right SFA. The iliofemoral vessels are unremarkable aside from the presence of an eccentric stenosis in the left common iliac artery. There is a mild celiac origin stenosis. The SMA is widely patent. The KEITH is widely patent. 2 probable renal arteries present on the right which appear patent and definitely 2 renal arteries on the left which appear patent. Due to marked respiratory artifact, evaluation for renal artery stenosis is suboptimal. The portal venous system is patent and normal in appearance. The IVC and iliofemoral veins appear unremarkable. NONVASCULAR FINDINGS: Examination of nonvascular structures is limited as this is an MR not designed for evaluation of abdominal and pelvic contents. LUNG BASES: No large effusions or lung masses. LIVER, GALLBLADDER, AND BILIARY TREE: The liver is normal in size and shape. Some hepatic cysts are seen. No biliary ductal dilatation is present. The gallbladder is unremarkable with no evidence of radiopaque gallstones, gallbladder wall thickening, or obvious pericholecystic inflammatory changes. PANCREAS: Innumerable pancreatic cysts are again seen throughout the gland. SPLEEN: Normal in size. ADRENAL GLANDS: No adrenal masses. KIDNEYS AND URETERS: The kidneys are normal in size, shape, and attenuation. Bilateral benign Bosniak class I renal cysts are noted which require no additional imaging or follow-up. No solid renal masses are seen. BLADDER: Poorly evaluated. GASTROINTESTINAL TRACT: Poorly evaluated. No gross bowel obstruction. ABDOMINAL WALL: Tiny periumbilical hernia is present. LYMPH NODES: No gross lymphadenopathy. PELVIC VISCERA: Unremarkable. OSSEOUS STRUCTURES: There is artifact from a right total hip prosthesis. Mild degenerative changes seen in the spine. MR/MR angio abdomen wo/w con IMPRESSION: 1. The study is limited due to respiratory motion artifact. The renal arteries appear patent bilaterally. If catheter angiography is not performed, CT angiogram would be the exam of choice. If there is suspicion for renal artery stenosis, selective renal vein sampling could always be performed, which can be done with no intravenous contrast. In addition, CO2 angiography can be performed without IV contrast. However, given the appearance on this MRI exam, I highly doubt that a significant stenosis is present even though the study is suboptimal. 2. There is a mild stenosis at the origin of the right SFA and a moderate stenosis in the proximal left common iliac artery with a milder stenosis at the origin of the left SFA. 3. The renal arteries are not well evaluated due to respiratory artifact. 4. The portal venous system is patent and normal in appearance. 5. Innumerable pancreatic cysts are again seen. Electronically signed by: Carlos Portillo MD 06/13/2024 06:16 PM EDT
--- NOTE | 2024-06-11 12:12 | ED_ITS ---
HPI - General Adult General Chief complaint: Headache Stated complaint: HBP Time Seen by Provider: 06/11/24 12:21 Source: patient, family and old records reviewed Mode of arrival: ambulatory Limitations: no limitations History of Present Illness ED Provider: VINH RUANO narrative: 83 yo female with PMH of HTN on valsartan and doxazosin, GERD, SIADH, NET of duodenum being monitored, pancreatic IPMN being monitored by Dr. Macario after MRI showed recent increase in size she also notes she has been having a L sided chronic throbbing headache for months. No prior head imaging. Today notes increased BP with worsening headaches BP in GI office on multiple rechecks. She has no CP/SOB she denies numbness, weakness. She is compliant with her medications. MD complaint: HTN, headache Onset (ago): day(s) (1) Location: head Radiation: non-radiation Severity: moderate Quality: aching Pain Consistency: constant Relieving factors: none Exacerbating factors: none Associated symptoms: headaches Treatments prior to arrival: none Related Data Home Medications ?Medication ?Instructions ?Recorded ?Confirmed allopurinol 300 mg tablet 300 mg PO DAILY 03/21/23 07/08/23 biotin 10,000 mcg capsule 10,000 mcg PO DAILY 03/21/23 07/08/23 doxazosin 2 mg tablet 2 mg PO DAILY 03/21/23 07/08/23 valsartan 80 mg tablet 80 mg PO BID 03/21/23 07/08/23 aspirin 81 mg tablet,delayed 81 mg PO .two times a week 06/27/23 07/08/23 release (Adult Aspirin Regimen) gabapentin 100 mg capsule 100 mg PO DAILY 12/12/23 cholecalciferol (vitamin D3) 10 10 mcg PO DAILY 06/11/24 mcg (400 unit) capsule fluticasone 250 mcg-salmeterol 50 1 ea inhalation BID 06/11/24 mcg/dose blistr powdr for inhalation (Wixela Inhub) fluticasone propionate 50 spray intranasal 06/11/24 mcg/actuation nasal spray,suspension magnesium chloride 71.5 mg 71.5 mg PO DAILY 06/11/24 (magnesium chloride) tablet,delayed release (Slow-Mag) rosuvastatin 10 mg tablet 10 mg PO DAILY 06/11/24 Previous Rx's ?Medication ?Instructions ?Recorded famotidine 40 mg tablet (Pepcid) 40 mg PO BEDTIME #90 tabs 09/05/23 esomeprazole magnesium 40 mg 40 mg PO DAILY #90 caps 12/31/23 capsule,delayed release Allergies Allergy/AdvReac Type Severity Reaction Status Date / Time levofloxacin [From LEVAQUIN] Allergy Severe FAINTING Verified 06/11/24 12:15 metoclopramide [From REGLAN] Allergy Severe PERSONALITY Verified 06/11/24 12:15 CHANGES-COMBATIVE Iodinated Contrast Media AdvReac Intermediate VERTIGO, Verified 06/11/24 12:15 [Iodinated Contrast Media - FLUSHING IV Dye] reglan Allergy Mild Unknown Uncoded 06/11/24 10:53 STATins Allergy Mild Muscle Uncoded 06/11/24 10:53 cramps IVP DYE Allergy Unknown Unknown Uncoded 06/11/24 10:53 Review of Systems 2 Review of Systems: Constitutional : No Fever, No Chills, No Fatigue ENT/Mouth : No sore throat, No Rhinorrhea Eyes: No Eye Pain, No Swelling, No Redness Cardiovascular : No Chest Pain, No SOB, No Dyspnea on Exertion Respiratory : No Cough, No Sputum Gastrointestinal : No Nausea, No Vomiting, No Diarrhea, No abdominal Pain Genitourinary : No Dysuria, No Urinary Frequency, No Hematuria, Musculoskeletal : No joint pain, No Myalgias, No Joint Swelling Skin : No Skin Lesions, No rash Neuro : No Weakness, No Numbness, No Dizziness, positive Headache Psych : No Anxiety/Panic, No Depression Heme/Lymph: No Bruising, No Bleeding,No Lymphadenopathy Endocrine : No Polyuria, No Polydipsia All other systems reviewed and are negative PMFSH Past Medical History Attestation statement: The following information was validated with the patient. Source: old records reviewed Surgical History Hx of appendectomy Hx of cholecystectomy History of hip replacement Hx of hysterectomy History of colon resection Hx of colonoscopy History of esophagogastroduodenoscopy (EGD) Social History Social History Alcohol intake: never Patient Tobacco Use Status: Former Tobacco user Smoked in Last 30 Days: No Advance Directives: Yes Advance Directives Information Provided: Yes Advance Directives on File: No Physical Exam ED Vital Signs: Vital Signs - 24 hr 06/11/24 12:12 06/11/24 12:58 06/11/24 13:38 Temperature 98.6 F 98.3 F Pulse Rate 67 84 61 Respiratory Rate 16 18 12 Blood Pressure 245/80 H 207/77 H 192/68 H Pulse Oximetry 99 96 97 Oxygen Delivery Method Room Air Room Air Room Air 06/11/24 13:55 06/11/24 14:00 06/11/24 14:52 Temperature 98.2 F Pulse Rate 68 66 Respiratory Rate 13 Blood Pressure 200/70 H 178/58 H 168/52 H Pulse Oximetry 99 Oxygen Delivery Method Room Air 06/11/24 15:29 Temperature 98.3 F Pulse Rate 61 Respiratory Rate 13 Blood Pressure 203/88 H Pulse Oximetry 98 Oxygen Delivery Method Room Air BMI result Body Mass Index 21.6 Appearance: Alert. Oriented X3. No acute distress. Eyes: Pupils equal, round and reactive to light. ENT: Pharynx normal. Neck: Normal inspection. Neck supple. CVS: Normal heart rate and rhythm. Pulses normal. Respiratory: No respiratory distress. Breath sounds normal. Abdomen: Soft and nontender. Skin: Skin warm and dry. Normal skin color. Normal skin turgor. Extremities: No lower extremity edema. No calf ttp Neuro: Oriented X 3. No motor deficit. No sensory deficit. Course Course Course Narrative: This is a Rapid Medical Examination (RME) performed by Lino Echevarria PA-C in triage. Full HPI, ROS, assessment and treatment plan per primary provider in the Main ED. 83 yo female hx of HTN, asthma, osteoporosis, and intraductal papillary mucinous neoplasm (IPMN) here for elevated BP at GI's office today (203/78). Dr. Macario advised to come to ED. admits to left sided BROOKS on waking this morning. denies vision changes, dizziness, chest pain, SOB. taking doxazosin and valsartan as prescribed. + well appearing. AOX3. no focal neuro deficits, hypertensive to 245/80 Plan: labs, ekg. will defer any imaging to primary ED provider Medications Administered Discontinued Medications Generic Name Dose Route Start Last Admin Trade Name Freq PRN Reason Stop Dose Admin Amlodipine Besylate 5 mg 06/11/24 14:29 06/11/24 14:52 Amlodipine Besylate 5 Mg Tablet PO 06/11/24 14:30 5 mg ONCE ONE Administration Protocol Magnesium Sulfate 2 gm in 50 mls @ 25 mls/hr 06/11/24 13:07 06/11/24 14:53 Magnesium Sulfate/H2o IV 06/11/24 15:06 Infused ONCE ONE Infusion Labetalol HCl 5 mg 06/11/24 12:41 06/11/24 12:48 Labetalol Hcl 100 Mg/20 Ml Vial IVPUSH 06/11/24 12:42 5 mg ONCE ONE Administration Medical Decision Making Medical Decision Making MDM Narrative: 83 yo female with PMH of HTN on valsartan and doxazosin, GERD, SIADH, NET of duodenum being monitored, pancreatic IPMN now here with chronic headache that worsened today with elevated BPs - she is compliant with her BP medications her BP was normal yesterday in PCP office 160s then on recheck 120s. At this time given the headache and her history CT head ordered for mass, IV labetalol and labs ordered as well to rule out kidney dysfunction. May need repeat IV doses of medications to control BP Differential Diagnosis Differential Diagnoses: The differential diagnosis associated with the presentation includes mass, HTN urgency Admission/Observation Consideration of admission/observation: Escalation of care including admission/observation considered repeat IV labetalol ordered x 1, PO amlodipine BP is still up will admit at this time IV hydralazine ordered Consult Healthcare Provider Management of the patient was discussed with: Hospitalist (will admit) Lab Data [facility] Lab Attestation statement: I reviewed the patient's lab results. H/H at baseline - hemoglobin at 8.2 and 8.4 at baseline 06/11/24 12:32 06/11/24 12:32 Labs: Lab Results 06/11/24 Range/Units 12:32 WBC 6.2 (4.8-10.8) X10*3/uL RBC 2.72 L (4.20-5.50) X10*6/uL Hgb 8.6 L (12.0-16.0) g/dl Hct 25.2 L (37.0-47.0) % MCV 92.6 (80.0-98.0) fL MCH 31.6 (27.0-33.0) pg MCHC 34.1 (31.0-35.0) g/dl RDW 14.5 (11.0-16.0) % Plt Count 230 (160-400) X10*3/uL MPV 9.6 (9.4-12.3) fL Immature Gran % (Auto) 0.3 (0.0-0.4) % Neut % (Auto) 65.4 (45-73) % Lymph % (Auto) 26.6 (20-40) % [place] % (Auto) 5.7 (2-11) % Eos % (Auto) 1.5 (0-4) % Baso % (Auto) 0.5 (0-2) % Lymph # (Auto) 1.6 (1.2-4.9) X10*3/uL [place] # (Auto) 0.4 (0.1-1.2) X10*3/uL Eos # (Auto) 0.1 (0.0-0.4) X10*3/uL Baso # (Auto) 0.0 (0.0-0.2) X10*3/uL Abs Immat Gran (auto) 0.02 (0.00-0.03) X10*3/uL Absolute Neuts (auto) 4.0 (2.0-8.3) x10*3/uL Absolute Nucleated RBC 0.000 (0.0-0.012) X10*3/uL Nucleated RBC % (auto) 0.0 (0.0-0.2) /100WBC Sodium 135 (135-145) mmol/L Potassium 5.0 (3.3-5.1) mmol/L Chloride 106 (96-108) mmol/L Carbon Dioxide 22 (22-29) mmol/L Anion Gap 12 (12-20) BUN 17 H (9-16) mg/dL Creatinine 0.89 (0.5-1.4) mg/dL Estim Creat Clear Calc 42.1 Estimated GFR > 60 Random Glucose 95 (60-115) mg/dL Calcium 9.5 (8.4-10.2) mg/dL Magnesium 1.4 L* (1.6-2.6) mg/dL Total Bilirubin 0.7 (0.0-1.0) mg/dL AST 27 (5-31) U/L ALT 19 (0-31) U/L Alkaline Phosphatase 65 (39-117) U/L Troponin I High Sens 4.4 (<3.5-17.0) ng/L Total Protein 6.4 L (6.5-8.0) g/dL Albumin 4.0 (3.5-5.0) g/dL Independent Interpretation I performed an independent interpretation of an: EKG and CT Scan (no mass old lacunar infarctions) Interpretation: Rate: 69 Rhythm: NSR [place]: normal Normal P waves. Normal COREY. Normal QRS complex. ST T wave : no SARA inverted t waves V1 qTC: 415 prior studies: no acute ischemia The study has been interpreted contemporaneously by me. . Radiology Impression Discussion of test interpretation with radiology: I have reviewed the radiologist's reading. Independent Historian Clinical information obtained from an independent historian. History obtained from or confirmed by: Spouse External Record Review External record reviewed: Inpatient record and Prior outpatient radiology Prescription Management I considered prescription management with: Other Critical Care Time Critical Care Time Critical Care Time: Yes Total Critical Care Time: 45 Attestation: IV labetalol, IV magnesium for repletion, IV hydralazine, review of records I attest to this time spent taking care of the patient Discharge Plan Discharge Clinical Impression: Acute headache, Hypertension, uncontrolled, Hypomagnesemia Patient Disposition: Admitted As Inpatient Additional Instructions: EKG and tests for heart normal kidney function normal magnesium low but repleted hemoglobin 8.6 at baseline return for any worsening symptoms or concerns start amlodipine tomorrow CT/CT head/brain wo IV con IMPRESSION: No acute intracranial abnormality. Mild microvascular ischemic change. Chronic bilateral basal ganglia lacunar infarctions. Prescriptions: No Action famotidine [Pepcid] 40 mg tablet 40 mg PO BEDTIME Qty: 90 2RF esomeprazole magnesium 40 mg capsule,delayed release(DR/EC) 40 mg PO DAILY Qty: 90 2RF biotin 10,000 mcg capsule 10,000 mcg PO DAILY doxazosin 2 mg tablet 2 mg PO DAILY allopurinol 300 mg tablet 300 mg PO DAILY valsartan 80 mg tablet 80 mg PO BID aspirin [Adult Aspirin Regimen] 81 mg tablet,delayed release (DR/EC) 81 mg PO .two times a week gabapentin 100 mg capsule 100 mg PO DAILY fluticasone propionate 50 mcg/actuation spray,suspension intranasal fluticasone propion-salmeterol [Wixela Inhub] 250-50 mcg/dose blister with device 1 ea inhalation BID Slow-Mag 71.5 mg tablet,delayed release (DR/EC) 71.5 mg PO DAILY rosuvastatin 10 mg tablet 10 mg PO DAILY cholecalciferol (vitamin D3) 10 mcg (400 unit) capsule 10 mcg PO DAILY Print Language: Khmer
--- NOTE | 2024-06-11 12:16 | ECG_ITS ---
Test Reason : HYPERTENSIVE Blood Pressure : / mmHG Vent. Rate : 069 BPM Atrial Rate : 069 BPM P-R Int : 182 ms QRS Dur : 088 ms QT Int : 388 ms P-R-T Axes : 064 041 038 degrees QTc Int : 415 ms Normal sinus rhythm Normal ECG No previous ECGs available Referred By: Geetha Echevarria Electronically Signed By:EWELINA ALEGRIA
[2024-06-11 12:41] LABS: MANUAL DIFF FLAG NO
[2024-06-11 12:44] LABS: Basophils Percent Auto 0.5 % (0-2); Eosinophils Absolute Auto 0.1 X10*3/uL (0.0-0.4); Eosinophils Percent Auto 1.5 % (0-4); Hematocrit 25.2 % (37.0-47.0); Hemoglobin 8.6 g/dl (12.0-16.0); Imm Gran Abs Auto 0.02 X10*3/uL (0.00-0.03); Imm Gran Pct Auto 0.3 % (0.0-0.4); Lymphocytes Absolute Auto 1.6 X10*3/uL (1.2-4.9); Lymphocytes Percent Auto 26.6 % (20-40); Mean Corpuscular HGB Conc 34.1 g/dl (31.0-35.0); Mean Corpuscular Hemoglobin 31.6 pg (27.0-33.0); Mean Corpuscular Volume 92.6 fL (80.0-98.0); Mean Platelet Volume 9.6 fL (9.4-12.3); Monocytes Absolute Auto 0.4 X10*3/uL (0.1-1.2); Monocytes Percent Auto 5.7 % (2-11); Neutrophils Percent Auto 65.4 % (45-73); Platelet Count 230 X10*3/uL (160-400); Red Blood Count 2.72 X10*6/uL (4.20-5.50); Red Cell Distribution Width 14.5 % (11.0-16.0); White Blood Count 6.2 X10*3/uL (4.8-10.8)
[2024-06-11] MEDS: Labetalol HCL 100 MG/20 ML VIAL IVPUSH (12:48)
[2024-06-11 13:08] LABS: Alanine Aminotransferase 19 U/L (0-31); Alkaline Phosphatase 65 U/L (39-117); Anion Gap 12 (12-20); Aspartate Amino Transferase 27 U/L (5-31); Bilirubin Total 0.7 mg/dL (0.0-1.0); Blood Urea Nitrogen 17 mg/dL (9-16); Calcium 9.5 mg/dL (8.4-10.2); Carbon Dioxide 22 mmol/L (22-29); Chloride 106 mmol/L (96-108); Creatinine Clr Calc Pharmacy 42.1; Estimated Glomerular Filt Rate > 60; Glucose Random 95 mg/dL (60-115); Magnesium 1.4 mg/dL (1.6-2.6); Sodium 135 mmol/L (135-145); Total Protein 6.4 g/dL (6.5-8.0)
[2024-06-11] MEDS: Magnesium Sulfate/H2O 2 GM/50 ML PIGGYBACK IV (13:28)
[2024-06-11 13:33] LABS: Troponin-I High Sensitivity 4.4 ng/L (<3.5-17.0)
[2024-06-11] MEDS: amLODIPine Besylate 5 MG TABLET PO (14:52)
[2024-06-11] MEDS: hydrALAZINE HCl 20 MG/ML VIAL 5 MG IVPUSH ×2 (16:40→17:46)
[2024-06-11] MEDS: Acetaminophen 325 MG TABLET 650 MG PO (16:40)
--- NOTE | 2024-06-11 17:19 | PHA.MEDREC ---
Addendum entered by Ashley Messer RPh 06/11/24 17:36: Med rec was reviewed by [facility]. Original Note: Pharmacy Consult ? Medication Reconciliation Pharmacy has completed the medication reconciliation. Spoke to patient and at bedside to confirm med list. had Patients medication list with him. states Aspirin 81 mg is Mondays and Fridays, last dose was today. Gabapentin is 200 mg at bedtime. patient states she takes Crestor 10 mg (brand name only). Informed patient and we do not have brand [place] [facility] will need to bring from home. said he will bring in tomorrow morning 06-11-24. Patient had a dose for today already.
--- NOTE | 2024-06-11 17:35 | P.HPHOSP_ITS ---
History of Present Illness Date of Service: 06/11/24 Attending physician on admission: Ilir Childers Chief Complaint: headache, high blood pressure This is an 83-year-old female who presents from the GI clinic due to elevated blood pressure. Patient was seen in the GI clinic for routine follow-up. At her appointment her blood pressure was noted to be significantly elevated and she also reported a headache. For this reason she was sent to the Emergency department for evaluation. On arrival to the emergency department her blood pressure was 245/180. CBC at baseline, no evidence of end-organ damage, kidney function normal, troponin negative. Brain CT negative for acute changes. EKG with no ischemic changes. Patient denied any chest pain, shortness of breath, blurry vision or dizziness. She does have persistent headache. Magnesium was low at 1.4 and this was replaced. For her blood pressure she received 1 dose of IV labetalol 1 dose of IV hydralazine as well as oral Norvasc and her blood pressure continued to be high and for this reason the decision was made to admit her to the hospital for further management of uncontrolled hypertension. Review of Systems 2 Review of Systems: Yes all other systems are reviewed and are negative Constitutional: Constitutional: Denies chills and Denies fever(s) Eyes: Eyes: Denies blurry vision ENT: Denies dizziness Cardiovascular: Cardiovascular: Denies chest pain, Denies palpitations and Denies dyspnea Respiratory: Respiratory: Denies cough and Denies dyspnea Gastrointestinal: Gastrointestinal: Denies abdominal pain, Denies nausea and Denies vomiting Neurologic: Denies dizziness Endocrine: Endocrine: Denies palpitations [facility] Medical History HLD (hyperlipidemia) Carcinoid tumor Hypertension SIAD (syndrome of inappropriate antidiuresis) GERD (gastroesophageal reflux disease) IPMN (intraductal papillary mucinous neoplasm) Functional capacity: independent ambulation Surgical History Hx of appendectomy Hx of cholecystectomy History of hip replacement Hx of hysterectomy History of colon resection Hx of colonoscopy History of esophagogastroduodenoscopy (EGD) Social History Alcohol intake: never Patient Tobacco Use Status: Former Tobacco user Smoked in Last 30 Days: No Advance Directives: Yes Advance Directives Information Provided: Yes Advance Directives on File: No Meds Allergies Allergy/AdvReac Type Severity Reaction Status Date / Time levofloxacin [From LEVAQUIN] Allergy Severe FAINTING Verified 06/11/24 12:15 metoclopramide [From REGLAN] Allergy Severe PERSONALITY Verified 06/11/24 12:15 CHANGES-COMBATIVE Iodinated Contrast Media AdvReac Intermediate VERTIGO, Verified 06/11/24 12:15 [Iodinated Contrast Media - FLUSHING IV Dye] reglan Allergy Mild Unknown Uncoded 06/11/24 10:53 STATins Allergy Mild Muscle Uncoded 06/11/24 10:53 cramps IVP DYE Allergy Unknown Unknown Uncoded 06/11/24 10:53 Home Medications ?Medication ?Instructions ?Recorded ?Confirmed ?Last Taken ?Type allopurinol 300 mg tablet 300 mg PO DAILY 03/21/23 06/11/24 06/11/24 History biotin 10,000 mcg capsule 10,000 mcg PO DAILY 03/21/23 06/11/24 06/11/24 History doxazosin 2 mg tablet 2 mg PO DAILY 03/21/23 06/11/24 06/11/24 History valsartan 80 mg tablet 80 mg PO BID 03/21/23 06/11/24 06/11/24 History aspirin 81 mg tablet,delayed 81 mg PO MOFR 06/27/23 06/11/24 06/11/24 History release (Adult Aspirin Regimen) gabapentin 100 mg capsule 200 mg PO BEDTIME 12/12/23 06/11/24 06/11/24 History cholecalciferol (vitamin D3) 10 10 mcg PO DAILY 06/11/24 06/11/24 06/11/24 History mcg (400 unit) capsule esomeprazole magnesium 40 mg 40 mg PO DAILY@0630 06/11/24 06/11/24 06/11/24 History capsule,delayed release fluticasone 250 mcg-salmeterol 50 1 ea inhalation BID 06/11/24 06/11/24 06/11/24 History mcg/dose blistr powdr for inhalation (Rafita Inhdelmar) fluticasone propionate 50 1 spray intranasal BID 06/11/24 06/11/24 06/11/24 History mcg/actuation nasal spray,suspension magnesium chloride 71.5 mg 71.5 mg PO DAILY 06/11/24 06/11/24 06/11/24 History (magnesium chloride) tablet,delayed release (Slow-Mag) rosuvastatin 10 mg tablet 10 mg PO DAILY 06/11/24 06/11/24 06/11/24 History Physical Exam 2 Vital Signs and Narrative: Vital Signs: Last Vital Signs Temp 98.3 F 06/11/24 15:29 Pulse 68 06/11/24 16:25 Resp 13 06/11/24 15:29 BP 229/75 H 06/11/24 16:42 Pulse Ox 98 06/11/24 15:29 O2 Del Method Room Air 06/11/24 15:29 BMI result Body Mass Index 21.6 Const: General: cooperative, comfortable, no acute distress, alert and awake Nutritional Appearance: average body habitus Orientation/consciousness: p atient oriented x3 Resp: Effort & Inspection: normal respiratory effort, able to speak in complete sentences, no respiratory distress and no use of accessory muscles A uscultation: clear to auscultation bilaterally Cardio: Rate: regular rate GI: Inspection: No distended Palpation (GI): Soft to palpation and nontender Neuro: General: patient oriented x3, moves all extremities and CN's II-XI intact bilaterally Extrem: General: Yes no pedal edema Results Labs 06/11/24 12:32 06/11/24 12:32 Labs: Laboratory Results - last 24 hr 06/11/24 12:32 MCV 92.6 MCH 31.6 MCHC 34.1 RDW 14.5 Plt Count 230 MPV 9.6 Immature Gran % (Auto) 0.3 Neut % (Auto) 65.4 Lymph % (Auto) 26.6 Cobb % (Auto) 5.7 Eos % (Auto) 1.5 Baso % (Auto) 0.5 Lymph # (Auto) 1.6 Cobb # (Auto) 0.4 Eos # (Auto) 0.1 Baso # (Auto) 0.0 Abs Immat Gran (auto) 0.02 Absolute Neuts (auto) 4.0 Absolute Nucleated RBC 0.000 Nucleated RBC % (auto) 0.0 Anion Gap 12 Estim Creat Clear Calc 42.1 Estimated GFR > 60 Random Glucose 95 Calcium 9.5 Magnesium 1.4 L* Total Bilirubin 0.7 AST 27 ALT 19 Alkaline Phosphatase 65 Troponin I High Sens 4.4 Total Protein 6.4 L Albumin 4.0 Imaging Radiologist's Impressions: Impressions Head CT 06/11/24 12:47 IMPRESSION: No acute intracranial abnormality. Mild microvascular ischemic change. Chronic bilateral basal ganglia lacunar infarctions. 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 Continue home dose of valsartan 80 mg bid planning to start po nifedipine 30 mg but bp now down to 163/56, will hold off for now to prevent hypotension. 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 Quality Stroke Does the patient have a stroke diagnosis?: No VTE Prior VTE?: No VTE Risk Level:: Medical - moderate - high VTE Device Contraindication: N/A - Device Ordered VTE Drug Contraindication: Treatment Not Indicated
[2024-06-11] MEDS: Butalb/Acetamin/Caff 50/325/40 TABLET 1 TAB PO (18:18)
[2024-06-11] MEDS: Gabapentin 100 MG CAPSULE 200 MG PO (20:04)
[2024-06-11] MEDS: Valsartan 80 MG TABLET PO (20:04)
[2024-06-11] MEDS: Aspirin Enteric Coated 81 MG TABLET.DR PO (20:04)
[2024-06-11] MEDS: Famotidine 20 MG TABLET 40 MG PO (20:04)
[2024-06-11] MEDS: Fluticasone Propionate Nasal 16 GM SPRAY 1 SPRAY NOSTRIL-B (20:08)
--- NOTE | 2024-06-11 20:10 | PC.NURSE ---
this rn assumed care of pt, pt a&ox4,respirations even and unlabored. pt denies pain at this time. pt medicated per nov, tolerated well whole with water. pt given food per request. vss.
--- NOTE | 2024-06-11 22:00 | PC.NURSE ---
Tech heard yelling help from pts room. Per poured concrete wall technician, pt requested to use the commode, stated she had to urinate. While on the commode, pts reported feeling unwell and dizzy, turn corbin in color and had approx a 60 second period where pt was not responding to staff but eyes were open. Pt lifted into bed, placed supine. BP noted to be 99/41, pt continues to report feeling unwell and weak. Hospitalist notified, orders for 500 ml of IVF obtained. Per hospitalist, no need for repeat lab/EKG. Pt telling primary RN that she was attempting to move her bowels when she began feeling unwell. ?Vasovagal vs orthostatic hypotension. Per hospitalist, pt to remain in bed.
--- NOTE | 2024-06-11 22:03 | PC.NURSE ---
this RN called to bedside. per [employer] crewmember Daisy, pt was assisted to bedside commode buy tech, pt turned jacques and went hypotenive 99/41. upon entrance to room pt was in bed, a&ox4, and color was pink. pt reports she was attempting to move bowels. aware, fluids ordered at this time. once pt resting in bed, pt BP is now 137/48. pt reports she feels well at this time, no acute distress noted.
--- NOTE | 2024-06-11 22:09 | MHC.EDTECH ---
Patient was incontinent of urine ,care given and bedding change ,gown change ,all safety measure in place ,call acevedo within pt reach .
[2024-06-11] MEDS: 0.9 % Sodium Chloride 500 ML IV (22:10)
--- NOTE | 2024-06-11 22:33 | MHC.EDTECH ---
PATIENT WAS ASSISTED UNTO BED LEONE ,PT HAD MODERATE SOFT BOWEL MOVEMENT CARE GIVEN AND WARM BLANKET ,CALL BELLE WITHIN PT REACH .
--- NOTE | 2024-06-11 23:54 | PC.NURSE ---
pt resting in stretcher, no acute distress noted.
[2024-06-12] MEDS: 0.9 % Sodium Chloride Flush 3 ML SYRINGE IVFLUSH ×3 (01:26→16:00)
[2024-06-12] MEDS: Acetaminophen 325 MG TABLET 650 MG PO ×2 (01:29→21:56)
[2024-06-12] MEDS: Melatonin 3 MG TABLET 6 MG PO (01:30)
[2024-06-12 03:49] VITALS: BP 148/50; PULSE 65; RESP 20; TEMP 36.4; O2SAT 97
[2024-06-12] MEDS: Omeprazole 20 MG CAPSULE.DR PO (06:35)
[2024-06-12 07:26] LABS: Anion Gap 11 (12-20); Blood Urea Nitrogen 18 mg/dL (9-16); Calcium 9.4 mg/dL (8.4-10.2); Carbon Dioxide 20 mmol/L (22-29); Chloride 108 mmol/L (96-108); Creatinine Clr Calc Pharmacy 38.2; Estimated Glomerular Filt Rate 54; Glucose Random 87 mg/dL (60-115); Magnesium 1.8 mg/dL (1.6-2.6); Potassium 5.4 mmol/L (3.3-5.1); Sodium 134 mmol/L (135-145)
[2024-06-12 08:00] VITALS: BP 208/60; PULSE 62; RESP 18; TEMP 36.3; O2SAT 98
[2024-06-12] MEDS: Valsartan 80 MG TABLET PO ×2 (08:16→21:52)
[2024-06-12] MEDS: allopurinoL 300 MG TABLET PO (08:16)
[2024-06-12] MEDS: Doxazosin Mesylate 2 MG TABLET PO (08:16)
[2024-06-12] MEDS: NIFEdipine ER 30 MG TAB.ER.24 PO (08:22)
[2024-06-12 12:00] VITALS: BP 160/58; PULSE 69; RESP 18; TEMP 36.9; O2SAT 95
--- NOTE | 2024-06-12 14:00 | CA_ITS ---
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 There is mildly increased left ventricular wall thickness. The left ventricular systolic function is hyperdynamic. The visually estimated ejection fraction is >70%. - Diastolic function is normal for age. - Normal right ventricular cavity size and systolic function. Findings Left Ventricle Normal left ventricular cavity size. There is mildly increased left ventricular wall thickness. The left ventricular systolic function is hyperdynamic. The visually estimated ejection fraction is >70%. There is no evidence of regional wall motion abnormalities. Diastolic function is normal for age. Right Ventricle Normal right ventricular cavity size and systolic function. Atria The left atrium is mildly dilated. Aortic Valve Normal aortic valve structure and function. There is no aortic valve stenosis. There is no aortic valve regurgitation. Mitral Valve The mitral valve appears normal. There is trace mitral valve regurgitation. There is no mitral valve stenosis. Pulmonic Valve The pulmonic valve is normal. There is trace pulmonic valve regurgitation. Tricuspid Valve Normal tricuspid valve structure. There is trace tricuspid valve regurgitation. Normal right atrial pressure. There is no evidence of pulmonary hypertension. Great Vessels All visible segments of the aorta are normal in size. The visualized portions of the pulmonary artery and branches are normal. Venous The inferior vena cava is normal in size and collapses greater than 50% with inspiration. Pericardium/Pleural There is no evidence of pericardial effusion. Prior Study Comparison No prior study available for comparison. Measurements 2D Linear Measurements IVSd: 1.23 0.6-0.9/0.6-1.0 cm LVIDd: 4.31 3.9-5.3/4.2-5.9 cm LVIDd Index: 2.66 2.4-3.2/2.2-3.1 cm/m2 LVIDs: 1.23 2.0-3.6 cm Ao Root: 3.00 2.1-3.5 cm LVOT Diam: 2.30 3.0+(-)1.3 cm Mitral Valve MV Pk E: 0.63 MV PK A: 0.88 MV Decel Time: 282.00 E/A: 0.70 E'Lateral: 5.77 E'Medial: 6.42 E/E' Med: 9.90 E/E' Lat: 11.00 PHT: 83.00 MVA PHT: 2.65 Decel [place]: 2.25 Aortic Valve AoV Pk Ghulam: 1.65 AoV Mn Ghulam: 1.05 AoV VTI: 0.43 AoV Pk Grad: 11.00 Aov Mn Grad: 5.00 MARYAM Cont.VTI: 2.94 LVOT LVOT Pk Ghulam: 1.17 LVOT Mn Ghulam: 0.78 LVOT VTI: 0.30 LVOT Pk Grad: 5.00 LVOT Mn Grad: 3.00 LVOT Diam: 2.30 LVOT Area: 4.15 Diastolic Function MV Pk E: 0.63 MV Pk A: 0.88 E/A: 0.70 E'Medial: 6.42 E/E' Med: 9.90 E' Laterial: 5.77 E/E' Lat: 11.00 Right Ventricle TAPSE (mm): 28.00 TVS' Ghulam: 16.00 Tricuspid Valve TR Pk Ghulam: 2.36 TR Pk Grad: 22.00 RA Press: 3.00 RVSP: 25.00 Great Vessels Aorta Ao Root-2D: 3.00 2.0-3.7 cm Ao Asc: 3.50 2.1-3.4 cm Pulmonary Valve PV Pk Ghulam: 1.27 Peak PV Grad: 6.00 Updated in Other Vendor System with Status of Final Donald Walton MD electronically signed on 06/12/2024 8:40:53 PM with status of Final
--- NOTE | 2024-06-12 14:22 | MHC.CM.PN ---
IMM 06/12/24, pt lives with her , she is independent, no home health services. For DME, she has a walker, which she uses only as needed. PCP confirmed: Sherman Paz. HCP is her Yasir, copy requested. Transport home at DC is family. DCP: home, self care. CM to follow and assist with DC plan.
--- NOTE | 2024-06-12 15:27 | P.PNIM_ITS ---
Subjective Subjective Date of Service: 06/12/24 Interval History: Episode of dizziness overnight there was self-limiting; initially sinus arrhythmia and monitor that has resolved Review of Systems Denies chest pain Denies shortness of breath Denies nausea vomiting diarrhea Denies fever chills Physical Exam 2 Vital Signs: Vital Signs: Last Vital Signs Temp 98.5 F 06/12/24 12:00 Pulse 69 06/12/24 12:00 Resp 18 06/12/24 12:00 BP 160/58 H 06/12/24 12:00 Pulse Ox 95 06/12/24 12:00 O2 Del Method Room Air 06/12/24 12:00 BMI result Body Mass Index 21.6 Const: Other: Awake alert oriented x3 no acute distress Neck: Other: Bilateral carotid bruits Resp: Other: Clear to auscultation bilaterally no rales rhonchi or wheezes Cardio: Other: No S4; positive S1-S2; no S3 murmurs rubs or gallops GI: Other: Soft nontender nondistended normoactive bowel sounds Neuro: Other: Cranial nerves 2-12 grossly intact as tested. Motor is 5/5 all extremities. Sensation is intact. Cognition appropriate, gait steady Psych: Other: No edema bilaterally Objective Data Active Medications Acetaminophen (Acetaminophen 325 Mg Tablet) 650 mg PO Q6H PRN PRN Reason: Pain, Mild (Pain Scale 1-3), fever or headache Last Admin: 06/12/24 01:29 Dose: 650 mg Documented By: JORGE Allopurinol (Allopurinol 300 Mg Tablet) 300 mg PO DAILY [facility] Last Admin: 06/12/24 08:16 Dose: 300 mg Documented By: JAN Aspirin (Aspirin Enteric Coated 81 Mg Tablet.Dr) 81 mg PO MOFR [facility] Last Admin: 06/11/24 20:04 Dose: 81 mg Documented By: NOAH Calcium Carbonate (Calcium Carbonate 750 Mg Tab.Chew) 750 mg PO Q4H PRN PRN Reason: Heartburn Doxazosin Mesylate (Doxazosin Mesylate 2 Mg Tablet) 2 mg PO DAILY [facility]; Protocol Last Admin: 06/12/24 08:16 Dose: 2 mg Documented By: JAN Famotidine (Famotidine 20 Mg Tablet) 40 mg PO BEDTIME [facility] Last Admin: 06/11/24 20:04 Dose: 40 mg Documented By: NOAH Fluticasone Propionate (Fluticasone Propionate Nasal 16 Gm [place]) 1 spray NOSTRIL-B BID [facility] Last Admin: 06/12/24 08:19 Dose: Not Given Documented By: JAN Non-Admin Reason: Patient Refused Fluticasone/Vilanterol (Fluticasone/Vilanterol 100/25 Blst.W.Dev) 1 puff INHALE RDAILY [facility] Last Admin: 06/12/24 07:50 Dose: Not Given Documented By: HITESH Non-Admin Reason: med unavailable pharmacy called Gabapentin (Gabapentin 100 Mg Capsule) 200 mg PO BEDTIME [facility] Last Admin: 06/11/24 20:04 Dose: 200 mg Documented By: NOAH Magnesium Hydroxide (Milk Of Magnesia 30 Ml Oral.Susp) 30 ml PO DAILY PRN PRN Reason: Constipation Melatonin (Melatonin 3 Mg Tablet) 6 mg PO BEDTIME PRN PRN Reason: Insomnia Last Admin: 06/12/24 01:30 Dose: 6 mg Documented By: JORGE Nifedipine (Nifedipine Er 30 Mg Tab.Er.24) 30 mg PO DAILY [facility]; Protocol Last Admin: 06/12/24 08:22 Dose: 30 mg Documented By: JAN Pt Own (Crestor 10 (Mg Tablet)) 10 mg PO DAILY [facility] Omeprazole (Omeprazole 20 Mg Capsule.Dr) 20 mg PO DAILY@0630 [facility] Last Admin: 06/12/24 06:35 Dose: 20 mg Documented By: JORGE Sodium Chloride (0.9 % Sodium Chloride Flush 3 Ml Syringe) 3 ml IVFLUSH QSHIFT [facility] Last Admin: 06/12/24 08:18 Dose: 3 ml Documented By: JAN Valsartan (Valsartan 80 Mg Tablet) 80 mg PO BID [facility]; Protocol Last Admin: 06/12/24 08:16 Dose: 80 mg Documented By: JAN Labs 06/11/24 12:32 06/12/24 06:13 Labs: Laboratory Results - last 24 hr 06/12/24 06:13 Anion Gap 11 L Estim Creat Clear Calc 38.2 Estimated GFR 54 Random Glucose 87 Calcium 9.4 Magnesium 1.8 Assessment and Plan (1) Hypertension, uncontrolled: Status: Acute Plan This is an 83-year-old female with history of asthma, hypertension,duodenal NET, 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 Bilateral carotid bruits (in backdrop questionable syncopal episodes) -carotid ultrasound pending Boots Full code Patient requires ongoing hospitalization to complete workup for uncontrolled/hypertensive urgency. High-risk of outpatient failure Quality Stroke Does the patient have a stroke diagnosis?: No VTE Prior VTE?: No VTE Risk Level:: Medical - moderate - high VTE Device Contraindication: N/A - Device Ordered VTE Drug Contraindication: Treatment Not Indicated
[2024-06-12 16:00] VITALS: BP 154/62; PULSE 64; RESP 18; TEMP 36.2; O2SAT 98
[2024-06-12 20:00] VITALS: BP 158/48; PULSE 69; RESP 16; TEMP 37.3; O2SAT 97
[2024-06-12 21:52] VITALS: BP 160/52
[2024-06-12] MEDS: Gabapentin 100 MG CAPSULE 200 MG PO (21:52)
[2024-06-12] MEDS: Famotidine 20 MG TABLET 40 MG PO (21:52)
[2024-06-13] VITALS (7 sets, daily range): BP systolic 134–175; BP diastolic 58–72; PULSE 62–84; RESP 15–20; TEMP 35.9–36.6; O2SAT 96–99
--- NOTE | 2024-06-13 03:15 | PC.NURSE ---
Assumed care of patient at 19:00. Bed alarm on and safety measures in place. Medicated with prn tylenol for headache with +effect. Please see shift assessment, tasks, and MAR for full details. Handoff report given to oncoming RN at 23:15.
[2024-06-13] MEDS: 0.9 % Sodium Chloride Flush 3 ML SYRINGE IVFLUSH ×4 (05:56→20:44)
[2024-06-13] MEDS: Omeprazole 20 MG CAPSULE.DR PO (05:56)
[2024-06-13 07:22] LABS: MANUAL DIFF FLAG NO
[2024-06-13] MEDS: Fluticasone/Vilanterol 100/25 BLST.W.DEV 1 PUFF INHALE (07:34)
[2024-06-13 07:40] LABS: Basophils Percent Auto 0.6 % (0-2); Eosinophils Absolute Auto 0.2 X10*3/uL (0.0-0.4); Eosinophils Percent Auto 3.1 % (0-4); Hematocrit 24.2 % (37.0-47.0); Hemoglobin 8.1 g/dl (12.0-16.0); Imm Gran Abs Auto 0.02 X10*3/uL (0.00-0.03); Imm Gran Pct Auto 0.3 % (0.0-0.4); Lymphocytes Absolute Auto 2.2 X10*3/uL (1.2-4.9); Lymphocytes Percent Auto 34.8 % (20-40); Mean Corpuscular HGB Conc 33.5 g/dl (31.0-35.0); Mean Corpuscular Hemoglobin 30.7 pg (27.0-33.0); Mean Corpuscular Volume 91.7 fL (80.0-98.0); Mean Platelet Volume 9.7 fL (9.4-12.3); Monocytes Absolute Auto 0.6 X10*3/uL (0.1-1.2); Monocytes Percent Auto 8.6 % (2-11); Neutrophils Absolute Auto 3.4 x10*3/uL (2.0-8.3); Neutrophils Percent Auto 52.6 % (45-73); Platelet Count 248 X10*3/uL (160-400); Red Blood Count 2.64 X10*6/uL (4.20-5.50); Red Cell Distribution Width 14.3 % (11.0-16.0); White Blood Count 6.4 X10*3/uL (4.8-10.8)
[2024-06-13 08:04] LABS: Alanine Aminotransferase 12 U/L (0-31); Albumin Level 3.6 g/dL (3.5-5.0); Alkaline Phosphatase 61 U/L (39-117); Anion Gap 11 (12-20); Aspartate Amino Transferase 22 U/L (5-31); Bilirubin Total 0.6 mg/dL (0.0-1.0); Blood Urea Nitrogen 20 mg/dL (9-16); Calcium 9.3 mg/dL (8.4-10.2); Carbon Dioxide 22 mmol/L (22-29); Chloride 108 mmol/L (96-108); Estimated Glomerular Filt Rate > 60; Glucose Fasting 91 mg/dL (60-99); Potassium 5.1 mmol/L (3.3-5.1); Sodium 136 mmol/L (135-145)
[2024-06-13] MEDS: NIFEdipine ER 30 MG TAB.ER.24 PO (08:04)
[2024-06-13] MEDS: allopurinoL 300 MG TABLET PO (08:04)
[2024-06-13] MEDS: Valsartan 80 MG TABLET PO ×2 (08:05→20:44)
[2024-06-13] MEDS: Doxazosin Mesylate 2 MG TABLET PO (08:05)
[2024-06-13] MEDS: Fluticasone Propionate Nasal 16 GM SPRAY 1 SPRAY NOSTRIL-B ×2 (08:05→20:44)
--- NOTE | 2024-06-13 12:51 | P.PNIM_ITS ---
Subjective Subjective Date of Service: 06/13/24 Interval History: Asymptomatic since admission. Blood pressure acceptable at this time Review of Systems Denies chest pain Denies shortness of breath Denies nausea vomiting diarrhea Denies fever chills Physical Exam 2 Vital Signs: Vital Signs: Last Vital Signs Temp 96.6 F L 06/13/24 12:00 Pulse 75 06/13/24 12:00 Resp 18 06/13/24 12:00 BP 175/71 H 06/13/24 12:00 Pulse Ox 98 06/13/24 12:00 O2 Del Method Room Air 06/13/24 12:00 BMI result Body Mass Index 21.6 Const: Other: Awake alert oriented x3 no acute distress Neck: Other: Bilateral carotid bruits Resp: Other: Clear to auscultation bilaterally no rales rhonchi or wheezes Cardio: Other: No S4; positive S1-S2; no S3 murmurs rubs or gallops GI: Other: Soft nontender nondistended normoactive bowel sounds Neuro: Other: Cranial nerves 2-12 grossly intact as tested. Motor is 5/5 all extremities. Sensation is intact. Cognition appropriate, gait steady Psych: Other: No edema bilaterally Objective Data Active Medications Acetaminophen (Acetaminophen 325 Mg Tablet) 650 mg PO Q6H PRN PRN Reason: Pain, Mild (Pain Scale 1-3), fever or headache Last Admin: 06/12/24 21:56 Dose: 650 mg Documented By: KEEGAN Allopurinol (Allopurinol 300 Mg Tablet) 300 mg PO DAILY [facility] Last Admin: 06/13/24 08:04 Dose: 300 mg Documented By: NINI Aspirin (Aspirin Enteric Coated 81 Mg Tablet.Dr) 81 mg PO MOFR [facility] Last Admin: 06/11/24 20:04 Dose: 81 mg Documented By: NOAH Calcium Carbonate (Calcium Carbonate 750 Mg Tab.Chew) 750 mg PO Q4H PRN PRN Reason: Heartburn Doxazosin Mesylate (Doxazosin Mesylate 2 Mg Tablet) 2 mg PO DAILY [facility]; Protocol Last Admin: 06/13/24 08:05 Dose: 2 mg Documented By: NINI Famotidine (Famotidine 20 Mg Tablet) 40 mg PO BEDTIME [facility] Last Admin: 06/12/24 21:52 Dose: 40 mg Documented By: KEEGAN Fluticasone Propionate (Fluticasone Propionate Nasal 16 Gm [place]) 1 spray NOSTRIL-B BID [facility] Last Admin: 06/13/24 08:05 Dose: 1 spray Documented By: NINI Fluticasone/Vilanterol (Fluticasone/Vilanterol 100/25 Blst.W.Dev) 1 puff INHALE RDAILY [facility] Last Admin: 06/13/24 07:34 Dose: 1 puff Documented By: LIANA Gabapentin (Gabapentin 100 Mg Capsule) 200 mg PO BEDTIME [facility] Last Admin: 06/12/24 21:52 Dose: 200 mg Documented By: KEEGAN Magnesium Hydroxide (Milk Of Magnesia 30 Ml Oral.Susp) 30 ml PO DAILY PRN PRN Reason: Constipation Melatonin (Melatonin 3 Mg Tablet) 6 mg PO BEDTIME PRN PRN Reason: Insomnia Last Admin: 06/12/24 01:30 Dose: 6 mg Documented By: JORGE Nifedipine (Nifedipine Er 30 Mg Tab.Er.24) 30 mg PO DAILY [facility]; Protocol Last Admin: 06/13/24 08:04 Dose: 30 mg Documented By: NINI Pt Own (Crestor 10 (Mg Tablet)) 10 mg PO DAILY [facility] Last Admin: 06/13/24 08:05 Dose: 10 mg Documented By: NINI Omeprazole (Omeprazole 20 Mg Capsule.Dr) 20 mg PO DAILY@0630 [facility] Last Admin: 06/13/24 05:56 Dose: 20 mg Documented By: CHUNG Sodium Chloride (0.9 % Sodium Chloride Flush 3 Ml Syringe) 3 ml IVFLUSH QSHIFT [facility] Last Admin: 06/13/24 08:05 Dose: 3 ml Documented By: NINI Valsartan (Valsartan 80 Mg Tablet) 80 mg PO BID [facility]; Protocol Last Admin: 06/13/24 08:05 Dose: 80 mg Documented By: NINI Labs 06/13/24 06:26 06/13/24 06:26 Labs: Laboratory Results - last 24 hr 06/13/24 06:26 MCV 91.7 MCH 30.7 MCHC 33.5 RDW 14.3 Plt Count 248 MPV 9.7 Immature Gran % (Auto) 0.3 Neut % (Auto) 52.6 Lymph % (Auto) 34.8 Ramsey % (Auto) 8.6 Eos % (Auto) 3.1 Baso % (Auto) 0.6 Lymph # (Auto) 2.2 [place] # (Auto) 0.6 Eos # (Auto) 0.2 Baso # (Auto) 0.0 Abs Immat Gran (auto) 0.02 Absolute Neuts (auto) 3.4 Absolute Nucleated RBC 0.000 Nucleated RBC % (auto) 0.0 Anion Gap 11 L Estim Creat Clear Calc 44.0 Estimated GFR > 60 Fasting Glucose 91 Calcium 9.3 Total Bilirubin 0.6 AST 22 ALT 12 Alkaline Phosphatase 61 Total Protein 6.0 L Albumin 3.6 Assessment and Plan (1) Hypertension, uncontrolled: Status: Acute Plan This is an 83-year-old female with history of asthma, hypertension,duodenal NET, 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 MRA of the kidneys ordered -we will consider renal consult in a.m.... Carotids with hemodynamically significant stenosis; consult vascular surgery in a.m. 2.Hypomagnesemia Received IV magnesium in ED Repeat in am 3.Chronic normocytic anemia -stable well compensated 4.Asthma No acute exacerbation Continue home medications 5. Bilateral carotid bruits (in backdrop questionable syncopal episodes) -carotid ultrasound pending Boots Full code Patient requires ongoing hospitalization to complete workup for uncontrolled/hypertensive urgency. High-risk of outpatient failure Quality Stroke Does the patient have a stroke diagnosis?: No VTE Prior VTE?: No VTE Risk Level:: Medical - moderate - high VTE Device Contraindication: N/A - Device Ordered VTE Drug Contraindication: Treatment Not Indicated
[2024-06-13] MEDS: gadobutroL 10 ML VIAL IVPUSH ×2 (14:46→14:47)
[2024-06-13] MEDS: Gabapentin 100 MG CAPSULE 200 MG PO (20:44)
[2024-06-13] MEDS: Famotidine 20 MG TABLET 40 MG PO (20:44)
[2024-06-14 04:00] VITALS: BP 118/56; PULSE 69; RESP 16; TEMP 37; O2SAT 97
[2024-06-14] MEDS: Omeprazole 20 MG CAPSULE.DR PO (06:07)
[2024-06-14 07:33] VITALS: BP 138/54
[2024-06-14] MEDS: NIFEdipine ER 30 MG TAB.ER.24 PO (07:33)
[2024-06-14] MEDS: Valsartan 80 MG TABLET PO (07:33)
[2024-06-14] MEDS: Fluticasone Propionate Nasal 16 GM SPRAY 1 SPRAY NOSTRIL-B (07:34)
[2024-06-14] MEDS: Doxazosin Mesylate 2 MG TABLET PO (07:34)
[2024-06-14] MEDS: 0.9 % Sodium Chloride Flush 3 ML SYRINGE IVFLUSH (07:34)
[2024-06-14] MEDS: allopurinoL 300 MG TABLET PO (07:34)
[2024-06-14 07:42] VITALS: BP 138/54; PULSE 68; RESP 20; TEMP 36.8; O2SAT 98
[2024-06-14] MEDS: Fluticasone/Vilanterol 100/25 BLST.W.DEV 1 PUFF INHALE (07:48)
[2024-06-14 07:50] VITALS: PULSE 64; RESP 15; O2SAT 99
--- NOTE | 2024-06-14 08:36 | P.CDIM_ITS ---
PROVIDER RESPONSE TEXT: To clarify, the appropriate diagnosis supported by the clinical indicators: Hyperkalemia: suspected QUERY TEXT: PHYSICIAN'S DOCUMENTATION REQUEST Date of Query: 06/14/2024 08:01 AM EDT Patient Name: Sola Lemon Admit Date: 06/11/2024 Dear Duncan Barton DO, A review of the medical record indicates additional documentation may be needed. Please review below and update the documentation accordingly. Clinical Indicators: LABS: potassium 5.4 H Based on the above, is there a diagnosis that correlates with these lab findings: Hyperkalemia possible, probable, suspected etc. Labs indicate a diagnosis of (please specify) Other (explain) Clinically unable to determine (explain) Thank you, Marivel Wiley, CCS, CDIS Use of terms such as suspected, likely, concern for, or probable (associated with a specific diagnosi s that is being evaluated, monitored, or treated as if it exists) are acceptable and can be coded in the inpatient se tting, when documented at the time of discharge. Please use your independent medical judgment in providing your response. THIS QUERY IS PART OF THE PERMANENT MEDICAL RECORD
--- NOTE | 2024-06-14 10:43 | P.CONGS_ITS ---
History of Present Illness Consult details Consult date: 06/14/24 Reason for consult: other (Carotid stenosis) Narrative: Very pleasant 83-year-old female presented for near syncopal episode to the hospital. She had been worked up and actually had seen at an outside institution workup at that point was negative and she re-presented. She reports that this happened 2-3 years prior and had been happening on a rare occasion but it has a crease to the point where it is 2 to 3 times a year. She gets this lightheaded feeling weak this and nearly passes out. It will require EMS transport to hospitals for workup which have proven to be negative. She did get a carotid ultrasound which demonstrated bilateral carotid stenosis. At the current time she does not note any lateralizing signs or symptoms visual disturbances or garbled speech. Review of Systems 2 Review of Systems: Yes all other systems are reviewed and are negative Constitutional: Constitutional: Reports no additional constitutional complaints ENT: Reports Normal hearing present Cardiovascular: Cardiovascular: Denies chest pain, Denies chest pain at rest, Denies chest pain with activity and Denies pedal edema Respiratory: Respiratory: Denies cough Gastrointestinal: Gastrointestinal: Denies abdominal pain Musculoskeletal: Musculoskeletal: Denies abnormal gait, Denies muscle cramps and Denies radiating pain into limb Integumentary/Breasts: Skin/Breast: Denies skin ulcer and Denies wounds Neurologic: Reports Normal hearing present and Denies abnormal gait Psychiatric: Psychiatric: Reports no additional psychiatric complaints [facility] Past Medical History Medical History HLD (hyperlipidemia) Carcinoid tumor Hypertension SIAD (syndrome of inappropriate antidiuresis) GERD (gastroesophageal reflux disease) IPMN (intraductal papillary mucinous neoplasm) Surgical History Surgical History Hx of appendectomy Hx of cholecystectomy History of hip replacement Hx of hysterectomy History of colon resection Hx of colonoscopy History of esophagogastroduodenoscopy (EGD) Social History Social History Household Members: Spouse Housing: House Do you presently have visiting nurse or other home services: No Alcohol intake: never Patient Tobacco Use Status: Former Tobacco user Smoked in Last 30 Days: No e-Cigarette/Vaping Use: Never Used Use of substances other than those prescribed or required for medical reasons: No Currently Displaying Signs/Symptoms of Drug Intoxication Withdrawal: No Have you been hit, kicked, punched, or otherwise hurt by someone within the past year? If so, by whom?: No Do you feel safe in your current relationship?: Yes Is there a partner from a previous relationship who is making you feel unsafe now?: No Are you made to feel afraid or neglected: No Advance Directives: Yes Advance Directives Information Provided: Yes Advance Directives on File: No Advance Directives Date on File: 06/11/24 Do you have a plan to hurt others: No Plan Recently lost weight without trying: Yes How much weight loss: 14-23 pounds Eating poorly because of decreased appetite: Yes Nutrition screen score: 5 Nutrition Risks: Poor intake 0-25% >4 days Patient : No : No Poor oral hygiene: No service: No Meds Allergies Allergy/AdvReac Type Severity Reaction Status Date / Time levofloxacin [From LEVAQUIN] Allergy Severe FAINTING Verified 06/11/24 12:15 metoclopramide [From REGLAN] Allergy Severe PERSONALITY Verified 06/11/24 12:15 CHANGES-COMBATIVE Iodinated Contrast Media AdvReac Intermediate VERTIGO, Verified 06/11/24 12:15 [Iodinated Contrast Media - FLUSHING IV Dye] reglan Allergy Mild Unknown Uncoded 06/11/24 10:53 STATins Allergy Mild Muscle Uncoded 06/11/24 10:53 cramps IVP DYE Allergy Unknown Unknown Uncoded 06/11/24 10:53 Active Medications: Current Medications Acetaminophen (Acetaminophen 325 Mg Tablet) 650 mg PO Q6H PRN PRN Reason: Pain, Mild (Pain Scale 1-3), fever or headache Last Admin: 06/12/24 21:56 Dose: 650 mg Allopurinol (Allopurinol 300 Mg Tablet) 300 mg PO DAILY [facility] Last Admin: 06/14/24 07:34 Dose: 300 mg Aspirin (Aspirin Enteric Coated 81 Mg Tablet.Dr) 81 mg PO MOFR [facility] Last Admin: 06/11/24 20:04 Dose: 81 mg Calcium Carbonate (Calcium Carbonate 750 Mg Tab.Chew) 750 mg PO Q4H PRN PRN Reason: Heartburn Doxazosin Mesylate (Doxazosin Mesylate 2 Mg Tablet) 2 mg PO DAILY [facility]; Protocol Last Admin: 06/14/24 07:34 Dose: 2 mg Famotidine (Famotidine 20 Mg Tablet) 40 mg PO BEDTIME [facility] Last Admin: 06/13/24 20:44 Dose: 40 mg Fluticasone Propionate (Fluticasone Propionate Nasal 16 Gm [place]) 1 spray NOSTRIL-B BID [facility] Last Admin: 06/14/24 07:34 Dose: 1 spray Fluticasone/Vilanterol (Fluticasone/Vilanterol 100/25 Blst.W.Dev) 1 puff INHALE RDAILY [facility] Last Admin: 06/14/24 07:48 Dose: 1 puff Gabapentin (Gabapentin 100 Mg Capsule) 200 mg PO BEDTIME [facility] Last Admin: 06/13/24 20:44 Dose: 200 mg Magnesium Hydroxide (Milk Of Magnesia 30 Ml Oral.Susp) 30 ml PO DAILY PRN PRN Reason: Constipation Melatonin (Melatonin 3 Mg Tablet) 6 mg PO BEDTIME PRN PRN Reason: Insomnia Last Admin: 06/12/24 01:30 Dose: 6 mg Nifedipine (Nifedipine Er 30 Mg Tab.Er.24) 30 mg PO DAILY [facility]; Protocol Last Admin: 06/14/24 07:33 Dose: 30 mg Pt Own (Crestor 10 (Mg Tablet)) 10 mg PO DAILY [facility] Last Admin: 06/14/24 07:34 Dose: 10 mg Omeprazole (Omeprazole 20 Mg Capsule.Dr) 20 mg PO DAILY@0630 [facility] Last Admin: 06/14/24 06:07 Dose: 20 mg Sodium Chloride (0.9 % Sodium Chloride Flush 3 Ml Syringe) 3 ml IVFLUSH QSHIFT [facility] Last Admin: 06/14/24 07:34 Dose: 3 ml Valsartan (Valsartan 80 Mg Tablet) 80 mg PO BID [facility]; Protocol Last Admin: 06/14/24 07:33 Dose: 80 mg Home Medications ?Medication ?Instructions ?Recorded ?Confirmed ?Last Taken ?Type allopurinol 300 mg tablet 300 mg PO DAILY 03/21/23 06/11/24 06/11/24 History biotin 10,000 mcg capsule 10,000 mcg PO DAILY 03/21/23 06/11/24 06/11/24 History doxazosin 2 mg tablet 2 mg PO DAILY 03/21/23 06/11/24 06/11/24 History valsartan 80 mg tablet 80 mg PO BID 03/21/23 06/11/24 06/11/24 History aspirin 81 mg tablet,delayed 81 mg PO MOFR 06/27/23 06/11/24 06/11/24 History release (Adult Aspirin Regimen) gabapentin 100 mg capsule 200 mg PO BEDTIME 12/12/23 06/11/24 06/11/24 History cholecalciferol (vitamin D3) 10 10 mcg PO DAILY 06/11/24 06/11/24 06/11/24 History mcg (400 unit) capsule esomeprazole magnesium 40 mg 40 mg PO DAILY@0630 06/11/24 06/11/24 06/11/24 History capsule,delayed release fluticasone 250 mcg-salmeterol 50 1 ea inhalation BID 06/11/24 06/11/24 06/11/24 History mcg/dose blistr powdr for inhalation (Wixela Inhub) fluticasone propionate 50 1 spray intranasal BID 06/11/24 06/11/24 06/11/24 History mcg/actuation nasal spray,suspension magnesium chloride 71.5 mg 71.5 mg PO DAILY 06/11/24 06/11/24 06/11/24 History (magnesium chloride) tablet,delayed release (Slow-Mag) rosuvastatin 10 mg tablet 10 mg PO DAILY 06/11/24 06/11/24 06/11/24 History Physical Exam 2 Vital Signs: Vital Signs: Last Vital Signs Temp 98.2 F 06/14/24 07:42 Pulse 64 06/14/24 07:50 Resp 15 06/14/24 07:50 BP 138/54 L 06/14/24 07:42 Pulse Ox 98 06/14/24 07:42 O2 Del Method Room Air 06/14/24 07:42 BMI result Body Mass Index 21.6 Const: General: cooperative, healthy appearing and comfortable O rientation/consciousness: oriented to person, oriented to place and oriented to time HEENT: Head: Yes normal to inspection Neck: Neck: Yes normal visual inspection Carotids: no bruits Chest: Chest palpation & inspection: normal inspection of the chest Resp: Effort & Inspection: normal respiratory effort and able to speak in complete sentences Auscultation: clear to auscultation bilaterally, no crackles, no rales, no rhonchi and no wheezes Cardio: Rate: regular rate Rhythm: regular rhythm Heart sounds: S1 normal heart sound present and S2 normal heart sound present Bruits: no carotid bruits Peripheral pulses: Peripheral pulses 2+ throughout GI: Inspection: Yes normal to inspection Skin: Wounds: no wounds Hair: normal Neuro: General: oriented to person, oriented to place and oriented to time Cranial nerves: Yes CN's II-XII intact bilaterally and Yes Normal hearing present Cognition (Neuro): normal cognition Motor exam (neuro): 5/5 motor strength present throughout Extrem: Other: venous exam: No significant superficial varicosities or spider telangiectasias, minimal edema General: No clubbing, No cyanosis and No edema Psych: Appearance: grossly normal Mental Status: mental status grossly normal Speech and movement: Normal speech and movement present Results Labs 06/13/24 06:26 06/13/24 06:26 Labs: All other labs normal. Imaging Additional studies: Head CT - negative Carotid ultrasound bilateral 50-79% stenosis written report and images were reviewed. Assessment and Plan (1) Bilateral carotid artery stenosis: Status: Acute Plan In short patient has bilateral carotid artery stenosis. The velocities are slightly elevated and I do think that it may be to the mid to higher point of that range. I do not think her symptomatology is related to the carotid disease. She can be worked up electively in terms of her carotids as an outpatient. I would recommend an aspirin and a statin. She can follow up with us as an outpatient in approximately 2 weeks' time upon discharge. At that time we may consider getting a CT angiogram to better elucidate the true degree of stenosis. Once again this can all be worked up electively. This was all related to the patient with nurse present. Thank you for allowing us to assist in her care. Procedures Date of Service Date of Service: 06/14/24
--- NOTE | 2024-06-14 10:47 | MHC.CM.PN ---
ANTIC PT WILL DC HOME SELF CARE PENDING NEPHRO CONSULT, FAMILY FOR TRANSPORT
[2024-06-14 11:05] VITALS: BP 110/52; PULSE 72; RESP 20; TEMP 36.5; O2SAT 100
--- NOTE | 2024-06-14 12:47 | PM.DS ---
DS: Providers Provider Date of Service: 06/14/24 Date of admission: 06/11/24 18:14 Date of discharge: 06/14/24 Primary care physician: Sherman Paz DO Consults: 06/14/24 08:15 Consult to Vascular Surgery Stat Consulting Provider: [facility] Reason for consultation: carotid disease Has provider been notified: Yes 06/14/24 08:17 Consult to Nephrology Routine Consulting Provider: [facility] Reason for consultation: Query FRANSISCO Has provider been notified: Yes DS: Diagnosis Discharge Diagnosis (1) Hypertension, uncontrolled: Status: Acute (2) Bilateral carotid artery stenosis: Status: Acute DS: Summary Hospital Course Hospital Course: 83-year-old female who presents from the GI clinic due to elevated blood pressure. Patient was seen in the GI clinic for routine follow-up. At her appointment her blood pressure was noted to be significantly elevated and she also reported a headache. For this reason she was sent to the Emergency department for evaluation. On arrival to the emergency department her blood pressure was 245/180. CBC at baseline, no evidence of end-organ damage, kidney function normal, troponin negative. Brain CT negative for acute changes. EKG with no ischemic changes. Patient denied any chest pain, shortness of breath, blurry vision or dizziness. She does have persistent headache. Magnesium was low at 1.4 and this was replaced. For her blood pressure she received 1 dose of IV labetalol 1 dose of IV hydralazine as well as oral Norvasc and her blood pressure continued to be high and for this reason the decision was made to admit her to the hospital for further management of uncontrolled hypertension. Hospital [facility] Patient admitted to telemetry where monitor demonstrate initially a sinus arrhythmia but for the remainder of her hospitalization was normal sinus rhythm without acute dysrhythmias. She was started on nifedipine ER 30 mg with good response in her blood pressure. Initial ultrasound Doppler of the kidneys failed to identify renal artery stenosis; given patient's allergy to contrast dye and MRA was obtained which was inconclusive. She was seen by renal who recommended medication management and further recommendations per her outside collector at [facility] Dr. Kumar. Initial exam demonstrated bilateral carotid bruits for which an ultrasound was undertaken. The demonstrated a high-grade stenosis in both carotid arteries for which she was seen by vascular surgery. She will be maintained on her aspirin daily and her statin and will follow-up with vascular as an outpatient. At this point in time she is medically acceptable for discharge and will follow up with her PCP/Dr. Kumar and vascular Time Attestation Discharge Coordination Time (in mins): 35 Quality: Safe Use of Opioids Does Pt have an Active Cancer Diagnosis on the Problem List?: No Quality: Stroke Does the patient have a stroke diagnosis?: No Physical Exam Vital Signs: Vital Signs: Last Vital Signs Temp 97.7 F 06/14/24 11:05 Pulse 72 06/14/24 11:05 Resp 20 06/14/24 11:05 BP 110/52 L 06/14/24 11:05 Pulse Ox 100 06/14/24 11:05 O2 Del Method Room Air 06/14/24 11:05 BMI result Body Mass Index 21.6 Const: Other: Awake alert oriented x3 no acute distress Neck: Other: Bilateral carotid bruits Resp: Other: Clear to auscultation bilaterally no rales rhonchi or wheezes Cardio: Other: No S4; positive S1-S2; no S3 murmurs rubs or gallops GI: Other: Soft nontender nondistended normoactive bowel sounds Neuro: Other: Cranial nerves 2-12 grossly intact as tested. Motor is 5/5 all extremities. Sensation is intact. Cognition appropriate, gait steady Psych: Other: No edema bilaterally Discharge Plan Discharge Anticipated Discharge Date/Time: 06/14/24 12:36 Patient Disposition: Home, Self-Care Discharge Diagnosis: Uncontrolled hypertension Referrals: Elton Shrestha MD [Physician] - 2 Weeks Sherman Paz DO [Primary Care Provider] - 1 Week Discharge Medications: New aspirin 81 mg Tablet,Delayed Release (Dr/Ec) 81 mg PO DAILY Qty: 90 0RF nifedipine 30 mg Tablet Extended Release 24hr 30 mg PO DAILY Qty: 30 0RF Protocol: Hold for SBP< HOLD for SBP < : 90 Continued famotidine [Pepcid] 40 mg tablet 40 mg PO BEDTIME Qty: 90 2RF fluticasone propion-salmeterol [Wixela Inhub] 250-50 mcg/dose blister with device 1 ea inhalation BID Slow-Mag 71.5 mg tablet,delayed release (DR/EC) 71.5 mg PO DAILY rosuvastatin 10 mg Tablet 10 mg PO DAILY Rx Instructions: Patient only takes BRAND NAME CRESTOR esomeprazole magnesium 40 mg capsule,delayed release(DR/EC) 40 mg PO DAILY@0630 biotin 10,000 mcg capsule 10,000 mcg PO DAILY doxazosin 2 mg tablet 2 mg PO DAILY allopurinol 300 mg tablet 300 mg PO DAILY valsartan 80 mg tablet 80 mg PO BID gabapentin 100 mg capsule 200 mg PO BEDTIME fluticasone propionate 50 mcg/actuation spray,suspension 1 spray intranasal BID cholecalciferol (vitamin D3) 10 mcg (400 unit) capsule 10 mcg PO DAILY Discontinued aspirin [Adult Aspirin Regimen] 81 mg tablet,delayed release (DR/EC) 81 mg PO MOFR Discharge Orders: Discharge Order (Routine); Ordered 06/14/24 Ordered By: Duncan Barton Diet: Advance to usual diet Activity on Discharge: As tolerated Stand Alone Forms: Patient Portal Discharge page Print Language: Japanese Care Plan Goals: Nifedipine ER 30 mg has been added to your blood pressure regimen. Continue this until seen by your PCP. Health Concerns: Your kidney workup needs to be completed as an outpatient. Called Dr. Kumar's office for an appointment to follow-up. Follow-up with vascular in 2 weeks or as recommended by your PCP Plan of Treatment: Continue all other medications as taken prior to hospital Assessment: See discharge summary
== END 2024-06-14 14:41 | disposition home or self-care (01) | DRG 641 ==
LOC: HO.ED 15:47 → HO.EDOVER 18:19 → HO.IMC 23:11
PROVIDERS: Physician Assistant Medical; Admitting Provider Physician Assistant Medical; Emergency Provider Emergency Medicine; PCP Family Medicine; Visit Provider Hospitalist
DX: E83.42 Hypomagnesemia (principal); I65.23 Occlusion and stenosis of bilateral carotid arteries; I10 Essential (primary) hypertension; D01.7 Carcinoma in situ of other specified digestive organs; D3A.8 Other benign neuroendocrine tumors; D64.9 Anemia, unspecified; J45.909 Unspecified asthma, uncomplicated; E87.5 Hyperkalemia; E78.5 Hyperlipidemia, unspecified; M10.9 Gout, unspecified; K20.90 Esophagitis, unspecified without bleeding; Z87.891 Personal history of nicotine dependence; Z79.51 Long term (current) use of inhaled steroids; Z79.899 Other long term (current) drug therapy
CPT/HCPCS: 36415; 70450; 74185; 76775; 80048; 80053; 83735; 84484; 85025; 93005; 93306; 93880; 93975; 99212; 99285; A9585; J0360; J1920; J3475; Q9957

== ENCOUNTER 2024-06-11 18:14 | Outpatient (BNV) | payer MEDICARE, SELFPAY | END 2024-06-12 14:00 | PROVIDERS: Admitting Provider Physician Assistant Medical; Emergency Provider Emergency Medicine; PCP Family Medicine; Visit Provider Internal Medicine Cardiovascular Disease | DX: R55 Syncope and collapse (principal) | CPT/HCPCS: 93306 ==

== ENCOUNTER → 2024-06-11 18:14 | Outpatient (BNV) | payer MEDICARE, SELFPAY | PROVIDERS: Admitting Provider Physician Assistant Medical; Emergency Provider Emergency Medicine; PCP Family Medicine; Visit Provider Surgery Vascular Surgery | DX: I65.23 Occlusion and stenosis of bilateral carotid arteries (principal) | CPT/HCPCS: 99222 ==

== ENCOUNTER → 2024-06-11 18:14 | Outpatient (BNV) | payer MEDICARE, SELFPAY | PROVIDERS: Admitting Provider Physician Assistant Medical; Emergency Provider Emergency Medicine; PCP Family Medicine; Visit Provider Hospitalist | DX: I10 Essential (primary) hypertension (principal) | CPT/HCPCS: 99223; 99232; 99239 ==

== ENCOUNTER 2024-09-13 10:58 | Outpatient (REF) | payer MEDICARE, SELFPAY ==
[2024-09-13 12:27] LABS: MANUAL DIFF FLAG NO
[2024-09-13 13:01] LABS: Basophils Percent Auto 0.5 % (0-2); Eosinophils Absolute Auto 0.2 X10*3/uL (0.0-0.4); Hematocrit 25.6 % (37.0-47.0); Hemoglobin 8.5 g/dl (12.0-16.0); Imm Gran Abs Auto 0.03 X10*3/uL (0.00-0.03); Imm Gran Pct Auto 0.4 % (0.0-0.4); Lymphocytes Absolute Auto 1.9 X10*3/uL (1.2-4.9); Lymphocytes Percent Auto 21.8 % (20-40); Mean Corpuscular HGB Conc 33.2 g/dl (31.0-35.0); Mean Corpuscular Hemoglobin 30.6 pg (27.0-33.0); Mean Corpuscular Volume 92.1 fL (80.0-98.0); Mean Platelet Volume 10.1 fL (9.4-12.3); Monocytes Absolute Auto 0.5 X10*3/uL (0.1-1.2); Monocytes Percent Auto 6.1 % (2-11); Neutrophils Absolute Auto 5.9 x10*3/uL (2.0-8.3); Neutrophils Percent Auto 69.2 % (45-73); Platelet Count 260 X10*3/uL (160-400); Red Blood Count 2.78 X10*6/uL (4.20-5.50); Red Cell Distribution Width 13.9 % (11.0-16.0); White Blood Count 8.5 X10*3/uL (4.8-10.8)
[2024-09-13 13:29] LABS: Alanine Aminotransferase 21 U/L (0-31); Albumin Level 3.9 g/dL (3.5-5.0); Alkaline Phosphatase 60 U/L (39-117); Anion Gap 12 (12-20); Aspartate Amino Transferase 28 U/L (5-31); Bilirubin Total 0.8 mg/dL (0.0-1.0); Blood Urea Nitrogen 20 mg/dL (9-16); Calcium 8.9 mg/dL (8.4-10.2); Carbon Dioxide 22 mmol/L (22-29); Chloride 106 mmol/L (96-108); Estimated Glomerular Filt Rate 47; Glucose Random 129 mg/dL (60-115); Potassium 4.9 mmol/L (3.3-5.1); Sodium 135 mmol/L (135-145); Total Protein 6.4 g/dL (6.5-8.0)
[2024-09-13 13:35] LABS: Ferritin 88 ng/mL (10-250)
== END 2024-09-13 10:59 | disposition home or self-care (01) ==
LOC: HO.LAB 10:58
PROVIDERS: PCP Family Medicine; Visit Provider Internal Medicine Gastroenterology
DX: Z13.89 Encounter for screening for other disorder (principal)
CPT/HCPCS: 36415; 80053; 82728; 85025; 86900; 86901; 99212

== ENCOUNTER 2024-09-13 12:39 | Emergency (ER) | payer MEDICARE, SELFPAY ==
[2024-09-13] VITALS (17 sets, daily range): BP systolic 101–161; BP diastolic 43–90; PULSE 63–89; RESP 13–20; TEMP 36.1–37.2; O2SAT 95–98; BMI 21.3
--- NOTE | ~2024-09-13 | CT_ITS ---
EXAMINATION: CT ABDOMEN AND PELVIS WITHOUT CONTRAST CLINICAL INFORMATION: Lower abdominal pain. Question vaginal fistula. COMPARISON: MRI abdomen June 13, 2024, May 02, 2020 TECHNIQUE: Multidetector volumetric imaging was performed from the superior aspect of the liver through the pubic symphysis. Sagittal and coronal reformatted images were obtained on the technologist's workstation. This CT examination was performed using dose optimization techniques as appropriate, variously including the following: *Automated exposure control *Adjustment of mA and/or kV according to patient size (this includes techniques or standardized protocols for targeted exams where dose is matched to indication/reason for exam; i.e. extremities or head) *Use of iterative reconstruction technique DLP: 430 mGy-cm FINDINGS: LUNG BASES: Dependent atelectasis bilateral. No pleural effusion. LIVER, GALLBLADDER, AND BILIARY TREE: The liver is normal in size, shape, and attenuation. No focal hepatic lesion or biliary ductal dilatation is present. Stable hepatic cyst inferior right lobe of liver segment 8. Status post cholecystectomy. Extrahepatic CBD is dilated to a diameter 1.3 cm. This is unchanged since MR study June 13, 2024. PANCREAS: Numerous pancreatic cysts similar to prior MR study June 13, 2024. SPLEEN: Unremarkable. ADRENAL GLANDS: Unremarkable. KIDNEYS AND URETERS: The kidneys are normal in size, shape, and attenuation. No hydronephrosis, hydroureter, or calculi seen. No perinephric stranding. BLADDER: Unremarkable. GASTROINTESTINAL TRACT: Surgical suture line at the distal rectosigmoid. No acute change of the bowel. No bowel obstruction. No bowel wall thickening or edema. The appendix is normal. Small bowel loops unremarkable. Stomach is unremarkable. ABDOMINAL WALL: No significant hernia is appreciated. LYMPH NODES: Normal. VASCULAR: Vascular calcifications in the abdomen and pelvis. No aneurysm. PELVIC VISCERA: Status post hysterectomy. OSSEOUS STRUCTURES: Multilevel degenerative spondylosis spine. Status post right hip replacement. CT/CT abdomen pelvis wo IV con IMPRESSION: 1. No acute abnormality CT scan abdomen pelvis. 2. Status post cholecystectomy. Extrahepatic CBD is dilated to a diameter 1.3 cm. This is unchanged since MR study June 13, 2024. 3. Numerous pancreatic cysts similar to prior MR study June 13, 2024. 4. Status post hysterectomy. 5. Surgical suture line at the distal rectosigmoid. No acute change of the bowel. Fleischner guidelines were followed. Electronically signed by: Genaro Montejo MD 09/13/2024 07:47 PM EST RP
--- NOTE | ~2024-09-13 | XR_ITS ---
EXAMINATION: XR CHEST CLINICAL INFORMATION: SOB COMPARISON: 03/21/2023. TECHNIQUE: 2 views of the chest were obtained. FINDINGS: The cardiac, hilar, and mediastinal contours are normal. Aortic arch is calcified. The lungs are diffusely hyperaerated, however clear bilaterally. There is no pneumothorax or pleural effusion. There is no focal osseous or soft tissue abnormality. There are cholecystectomy clips. XR/XR chest 2V IMPRESSION: No active pulmonary disease. No interval change. Electronically signed by: Layo Hubbard MD 09/13/2024 02:25 PM [facility]
--- NOTE | 2024-09-13 12:42 | ECG_ITS ---
Test Reason : SOB,DIZZINESS Blood Pressure : / mmHG Vent. Rate : 073 BPM Atrial Rate : 073 BPM P-R Int : 168 ms QRS Dur : 086 ms QT Int : 380 ms P-R-T Axes : 052 055 061 degrees QTc Int : 418 ms Normal sinus rhythm Normal ECG When compared with ECG of 11-JUN-2024 12:38, No significant change was found Referred By: Hiral King Electronically Signed By:ASAD SHARMA
[2024-09-13 13:08] LABS: MANUAL DIFF FLAG NO
[2024-09-13 13:14] LABS: Basophils Absolute Auto 0.1 X10*3/uL (0.0-0.2); Basophils Percent Auto 0.7 % (0-2); Eosinophils Absolute Auto 0.2 X10*3/uL (0.0-0.4); Hematocrit 25.5 % (37.0-47.0); Hemoglobin 8.6 g/dl (12.0-16.0); Imm Gran Abs Auto 0.04 X10*3/uL (0.00-0.03); Imm Gran Pct Auto 0.4 % (0.0-0.4); Lymphocytes Percent Auto 22.2 % (20-40); Mean Corpuscular HGB Conc 33.7 g/dl (31.0-35.0); Mean Corpuscular Hemoglobin 30.6 pg (27.0-33.0); Mean Corpuscular Volume 90.7 fL (80.0-98.0); Mean Platelet Volume 9.2 fL (9.4-12.3); Monocytes Absolute Auto 0.6 X10*3/uL (0.1-1.2); Monocytes Percent Auto 6.7 % (2-11); Neutrophils Absolute Auto 6.1 x10*3/uL (2.0-8.3); Platelet Count 246 X10*3/uL (160-400); Red Blood Count 2.81 X10*6/uL (4.20-5.50); Red Cell Distribution Width 14.1 % (11.0-16.0)
[2024-09-13 13:20] LABS: INTERNATIONAL NORM RATIO 0.9 (0.9-1.1)
[2024-09-13 13:22] LABS: Partial Thromboplastin Time 28.5 SEC (26.0-36.8)
[2024-09-13 13:26] LABS: Lipase 29 U/L (8-78)
[2024-09-13 13:29] LABS: Alanine Aminotransferase 23 U/L (0-31); Alkaline Phosphatase 61 U/L (39-117); Anion Gap 15 (12-20); Aspartate Amino Transferase 32 U/L (5-31); Bilirubin Direct 0.3 mg/dL (0.0-0.5); Bilirubin Total 0.8 mg/dL (0.0-1.0); Blood Urea Nitrogen 20 mg/dL (9-16); Calcium 8.9 mg/dL (8.4-10.2); Carbon Dioxide 20 mmol/L (22-29); Chloride 105 mmol/L (96-108); Creatinine Clr Calc Pharmacy 33.2; Estimated Glomerular Filt Rate 47; Glucose Random 109 mg/dL (60-115); Magnesium 1.5 mg/dL (1.6-2.6); Potassium 4.6 mmol/L (3.3-5.1); Sodium 135 mmol/L (135-145); Total Protein 6.5 g/dL (6.5-8.0)
[2024-09-13 13:35] LABS: Troponin-I High Sensitivity 3.7 ng/L (<3.5-17.0)
[2024-09-13 13:51] LABS: Influenza A PCR NEGATIVE (Negative); Influenza B PCR NEGATIVE (Negative); Resp Syncy Virus RNA Qual PCR NEGATIVE (Negative); SARS COV2 PCR INHOUSE NEGATIVE (Negative)
[2024-09-13] MEDS: Magnesium Sulfate/H2O 2 GM/50 ML PIGGYBACK IV (13:59)
--- NOTE | 2024-09-13 13:59 | ED_ITS ---
HPI - Syncope General Chief Complaint: Syncope Stated Complaint: feels like passing out Time Seen by Provider: 09/13/24 13:27 Source: patient and old records reviewed Mode of arrival: ambulatory Limitations: no limitations History of Present Illness ED Provider: VINH RUANO narrative: 84 yo female with PMH of anemia, HTN, GERD, HLD, hypomagnesemia who was referred to ED from GI clinic for persistent intermittent dizziness for years on and off but she feels they are much worse since starting nifedipine 60mg after stay in May for HTN - keeps track of BP and BP has been low 100s/40s since then and 82/42 on one PCP visit. Patient notes her symptoms are worse with standing. She has no CP/SOB, she has had negative images in the past and now new headaches. She tried to get labs today after refusing initial transfer from GI office to ED and she went to the lab and felt more dizzy and weak. MD complaint: other (dizziness, weakness) Onset (ago): year(s) Prodromal symptoms: lightheaded Witnessed: Yes - by Bystander Context: during exertion and standing up Injuries sustained associated with event: none Current symptoms: back to baseline History: other Treatments prior to arrival: none Related Data Home Medications ?Medication ?Instructions ?Recorded ?Confirmed allopurinol 300 mg tablet 300 mg PO DAILY 03/21/23 06/11/24 biotin 10,000 mcg capsule 10,000 mcg PO DAILY 03/21/23 06/11/24 doxazosin 2 mg tablet 2 mg PO DAILY 03/21/23 06/11/24 valsartan 80 mg tablet 80 mg PO BID 03/21/23 06/11/24 gabapentin 100 mg capsule 200 mg PO BEDTIME 12/12/23 06/11/24 cholecalciferol (vitamin D3) 10 10 mcg PO DAILY 06/11/24 06/11/24 mcg (400 unit) capsule fluticasone 250 mcg-salmeterol 50 1 ea inhalation BID 06/11/24 06/11/24 mcg/dose blistr powdr for inhalation (Rafita Inhdelmar) fluticasone propionate 50 1 spray intranasal BID 06/11/24 06/11/24 mcg/actuation nasal spray,suspension magnesium chloride 71.5 mg 71.5 mg PO DAILY 06/11/24 06/11/24 (magnesium chloride) tablet,delayed release (Slow-Mag) rosuvastatin 10 mg tablet 10 mg PO DAILY 06/11/24 06/11/24 Previous Rx's ?Medication ?Instructions ?Recorded aspirin 81 mg tablet,delayed 81 mg PO DAILY #90 tabs 06/14/24 release nifedipine 30 mg tablet,extended 30 mg PO DAILY #30 tabs 06/14/24 release 24 hr esomeprazole magnesium 40 mg 40 mg PO DAILY #90 caps 06/30/24 capsule,delayed release famotidine 40 mg tablet (Pepcid) 40 mg PO BEDTIME #90 tabs 09/13/24 Allergies Allergy/AdvReac Type Severity Reaction Status Date / Time levofloxacin [From LEVAQUIN] Allergy Severe FAINTING Verified 09/13/24 12:43 metoclopramide [From REGLAN] Allergy Severe PERSONALITY Verified 09/13/24 12:43 CHANGES-COMBATIVE Iodinated Contrast Media AdvReac Intermediate VERTIGO, Verified 09/13/24 12:43 [Iodinated Contrast Media - FLUSHING IV Dye] reglan Allergy Mild Unknown Uncoded 06/11/24 10:53 STATins Allergy Mild Muscle Uncoded 06/11/24 10:53 cramps IVP DYE Allergy Unknown Unknown Uncoded 06/11/24 10:53 Review of Systems 2 Review of Systems: Constitutional : No Fever, No Chills, No Fatigue ENT/Mouth : No sore throat, No Rhinorrhea Eyes: No Eye Pain, No Swelling, No Redness Cardiovascular : No Chest Pain, No SOB, No Dyspnea on Exertion Respiratory : No Cough, No Sputum Gastrointestinal : No Nausea, No Vomiting, No Diarrhea, No abdominal Pain Genitourinary : No Dysuria, No Urinary Frequency, No Hematuria, Musculoskeletal : No joint pain, No Myalgias, No Joint Swelling Skin : No Skin Lesions, No rash Neuro : pos Weakness, No Numbness, pos Dizziness, no Headache Psych : No Anxiety/Panic, No Depression All other systems reviewed and are negative PMFSH Past Medical History Attestation statement: The following information was validated with the patient. Source: old records reviewed Medical History Bilateral carotid artery stenosis Acute headache HLD (hyperlipidemia) Carcinoid tumor Hypertension SIAD (syndrome of inappropriate antidiuresis) GERD (gastroesophageal reflux disease) IPMN (intraductal papillary mucinous neoplasm) Surgical History Hx of appendectomy Hx of cholecystectomy History of hip replacement Hx of hysterectomy History of colon resection Hx of colonoscopy History of esophagogastroduodenoscopy (EGD) Social History Social History Household Members: Spouse Housing: House Do you presently have visiting nurse or other home services: No Alcohol intake: never Patient Tobacco Use Status: Former Tobacco user Smoked in Last 30 Days: No e-Cigarette/Vaping Use: Never Used Use of substances other than those prescribed or required for medical reasons: No Advance Directives: Yes Advance Directives on File: Yes Advance Directives Date on File: 06/11/24 Do you have a plan to hurt others: No Plan service: No Physical Exam 2 Vital Signs: Vital Signs: Last Vital Signs Temp 98.1 F 09/13/24 12:43 Pulse 79 09/13/24 14:24 Resp 16 09/13/24 12:43 BP 102/43 L 09/13/24 14:24 Pulse Ox 96 09/13/24 12:43 O2 Del Method Room Air 09/13/24 13:12 BMI result Body Mass Index 21.3 Appearance: Alert. Oriented X3. No acute distress. Eyes: Pupils equal, round and reactive to light. ENT: Pharynx normal. Neck: Normal inspection. Neck supple. CVS: Normal heart rate and rhythm. Pulses normal. Respiratory: No respiratory distress. Breath sounds normal. Abdomen: Soft and nontender. Skin: Skin warm and dry. pale skin color. Normal skin turgor. Extremities: No lower extremity edema. No calf ttp Neuro: Oriented X 3. No motor deficit. No sensory deficit. Course Course Course Narrative: signed out to Dr. Ibrahim pending repeat ortho and CT scan Reevaluation(s) Reevaluation #1: chronic intermittent melena for 3+ weeks per patient and Dr. Macario is aware was suppposed to have endoscopy and colonoscopy Dr. Macario aware I let Dr. Ibrahim know about CT scan and possible admission given his melena. Medications Administered Discontinued Medications Generic Name Dose Route Start Last Admin Trade Name Freq PRN Reason Stop Dose Admin Magnesium Sulfate 2 gm in 50 mls @ 25 mls/hr 09/13/24 13:34 09/13/24 13:59 Magnesium Sulfate/H2o IV 09/13/24 15:33 25 mls/hr ONCE ONE Administration Sodium Chloride 1,000 mls @ 999 mls/hr 09/13/24 14:41 09/13/24 15:08 Ns IV 09/13/24 15:41 999 mls/hr .Q1H1M ONE Administration Medical Decision Making Medical Decision Making [facility] Narrative: 84 yo female with PMH of anemia, HTN, GERD, HLD, hypomagnesemia here with c/o increasingly low BPs at home and provider offices since starting nifedipine she has longstanding episodes of dizziness but since starting the medications her symptoms have been much worse. She also has recorded BPs 100/40s and 80s/40s. The patient has no CP/SOB, denies GIB symptoms but the patient has been seeing Macario was due to have CT scan but allergic to dye for ?what sounds like rectovaginal fistula at this time basic labs, EKG, ortho VS, IVF, CT scan with oral contrast Differential Diagnosis Differential Diagnoses: The differential diagnosis associated with the presentation includes anemia, dehydration, ortho VS, reaction to nifedipine, fistula Admission/Observation Consideration of admission/observation: Escalation of care including admission/observation considered Lab Data [facility] Lab Attestation statement: I reviewed the patient's lab results. 09/13/24 13:03 09/13/24 13:03 Labs: Lab Results 09/13/24 09/13/24 Range/Units 13:02 13:03 WBC 9.0 (4.8-10.8) X10*3/uL RBC 2.81 L (4.20-5.50) X10*6/uL Hgb 8.6 L (12.0-16.0) g/dl Hct 25.5 L (37.0-47.0) % MCV 90.7 (80.0-98.0) fL MCH 30.6 (27.0-33.0) pg MCHC 33.7 (31.0-35.0) g/dl RDW 14.1 (11.0-16.0) % Plt Count 246 (160-400) X10*3/uL MPV 9.2 L (9.4-12.3) fL Immature Gran % (Auto) 0.4 (0.0-0.4) % Neut % (Auto) 68.0 (45-73) % Lymph % (Auto) 22.2 (20-40) % [place] % (Auto) 6.7 (2-11) % Eos % (Auto) 2.0 (0-4) % Baso % (Auto) 0.7 (0-2) % Lymph # (Auto) 2.0 (1.2-4.9) X10*3/uL [place] # (Auto) 0.6 (0.1-1.2) X10*3/uL Eos # (Auto) 0.2 (0.0-0.4) X10*3/uL Baso # (Auto) 0.1 (0.0-0.2) X10*3/uL Abs Immat Gran (auto) 0.04 H (0.00-0.03) X10*3/uL Absolute Neuts (auto) 6.1 (2.0-8.3) x10*3/uL Absolute Nucleated RBC 0.000 (0.0-0.012) X10*3/uL Nucleated RBC % (auto) 0.0 (0.0-0.2) /100WBC Hold Purple Top SEE NOTE PT 11.0 (10.9-12.4) SEC INR 0.9 (0.9-1.1) APTT 28.5 (26.0-36.8) SEC Sodium 135 (135-145) mmol/L Potassium 4.6 (3.3-5.1) mmol/L Chloride 105 (96-108) mmol/L Carbon Dioxide 20 L (22-29) mmol/L Anion Gap 15 (12-20) BUN 20 H (9-16) mg/dL Creatinine 1.11 (0.5-1.4) mg/dL Estim Creat Clear Calc 33.2 Estimated GFR 47 Random Glucose 109 (60-115) mg/dL Calcium 8.9 (8.4-10.2) mg/dL Magnesium 1.5 L (1.6-2.6) mg/dL Total Bilirubin 0.8 (0.0-1.0) mg/dL Direct Bilirubin 0.3 (0.0-0.5) mg/dL AST 32 H (5-31) U/L ALT 23 (0-31) U/L Alkaline Phosphatase 61 (39-117) U/L Troponin I High Sens 3.7 (<3.5-17.0) ng/L Total Protein 6.5 (6.5-8.0) g/dL Albumin 4.0 (3.5-5.0) g/dL Lipase 29 (8-78) U/L Influenza Type A (PCR) NEGATIVE (Negative) Influenza Type B (PCR) NEGATIVE (Negative) RSV RNA Qual (PCR) NEGATIVE (Negative) SARS-CoV-2 RNA (RT-PCR) NEGATIVE (Negative) Independent Interpretation I performed an independent interpretation of an: EKG and Plain X-Ray (normal ) Interpretation: Rate: 73 Rhythm: NSR Downey: normal Normal P waves. Normal COREY. Normal QRS complex. ST T wave : normal no SARA qTC: 418 prior studies: no acute ischemia The study has been interpreted contemporaneously by me. . Radiology Impression Discussion of test interpretation with radiology: I have reviewed the radiologist's reading. Independent Historian Clinical information obtained from an independent historian. History obtained from or confirmed by: Spouse External Record Review External record reviewed: Inpatient record and Outpatient record Discharge Plan Discharge Clinical Impression: Weakness, Orthostatic hypotension, Hypomagnesemia Patient Disposition: Still a Patient Instructions: Hypotension (ED), Weakness (ED) Additional Instructions: hold nifedipine and follow up with primary care doctor magnesium was low and we repleted it Prescriptions: No Action esomeprazole magnesium 40 mg capsule,delayed release(DR/EC) 40 mg PO DAILY Qty: 90 2RF fluticasone propion-salmeterol [Wixela Inhub] 250-50 mcg/dose blister with device 1 ea inhalation BID Slow-Mag 71.5 mg tablet,delayed release (DR/EC) 71.5 mg PO DAILY rosuvastatin 10 mg Tablet 10 mg PO DAILY Rx Instructions: Patient only takes BRAND [employer] CRESTOR aspirin 81 mg Tablet,Delayed Release (Dr/Ec) 81 mg PO DAILY Qty: 90 0RF nifedipine 30 mg Tablet Extended Release 24hr 30 mg PO DAILY Qty: 30 0RF Protocol: Hold for SBP< HOLD for SBP < : 90 biotin 10,000 mcg capsule 10,000 mcg PO DAILY doxazosin 2 mg tablet 2 mg PO DAILY allopurinol 300 mg tablet 300 mg PO DAILY valsartan 80 mg tablet 80 mg PO BID gabapentin 100 mg capsule 200 mg PO BEDTIME fluticasone propionate 50 mcg/actuation spray,suspension 1 spray intranasal BID cholecalciferol (vitamin D3) 10 mcg (400 unit) capsule 10 mcg PO DAILY famotidine [Pepcid] 40 mg tablet 40 mg PO BEDTIME Qty: 90 2RF Print Language: Andorran
[2024-09-13] MEDS: 0.9 % Sodium Chloride 1,000 ML 999 ML IV ×2 (15:08→20:10)
[2024-09-13] MEDS: Diatrizoate Meglumine, Sodium 30 ML SOLUTION PO (18:12)
--- NOTE | 2024-09-13 21:25 | PC.NURSE ---
Second liter infused, orthos done again, still positive from sitting to standing, Dr. Mason made aware, ordered midodrine.
[2024-09-13] MEDS: Midodrine HCl 5 MG TABLET PO (21:32)
== END 2024-09-13 23:19 | disposition home or self-care (01) ==
PROVIDERS: Physician Assistant Medical; Emergency Provider Internal Medicine; PCP Family Medicine
DX: I95.1 Orthostatic hypotension (principal); E83.42 Hypomagnesemia; R06.02 Shortness of breath; R53.1 Weakness; R42 Dizziness and giddiness; R10.2 Pelvic and perineal pain; R11.0 Nausea; R79.89 Other specified abnormal findings of blood chemistry; Z03.818 Encounter for observation for suspected exposure to other biological agents ruled out; Z79.899 Other long term (current) drug therapy
CPT/HCPCS: 0241U; 36415; 71046; 74176; 80048; 80053; 80076; 82728; 83690; 83735; 84484; 85025; 85610; 85730; 86900; 86901; 93005; 96361; 96365; 96366; 99212; 99284; 99285; J3475

== ENCOUNTER → 2024-09-13 12:42 | Outpatient (BNV) | payer MEDICARE, SELFPAY | PROVIDERS: Emergency Provider Emergency Medicine; PCP Family Medicine; Visit Provider Internal Medicine | DX: R06.02 Shortness of breath (principal); R42 Dizziness and giddiness | CPT/HCPCS: 93010 ==

== ENCOUNTER → 2024-09-13 12:42 | Outpatient (BNV) | payer MEDICARE, SELFPAY | PROVIDERS: Emergency Provider Emergency Medicine; PCP Family Medicine; Visit Provider Radiology Diagnostic Radiology | DX: R06.02 Shortness of breath (principal); I70.0 Atherosclerosis of aorta | CPT/HCPCS: 71046 ==

== ENCOUNTER 2024-12-02 09:27 | Day surgery (SDC) | payer MEDICARE, SELFPAY ==
[2024-11-30 16:17] VITALS: BMI 21.3
--- NOTE | 2024-12-01 09:50 | P.CONAN_ITS ---
Documented by User: Kayla Mann NP 12/01/24 09:56 HPI - Anesthesia Eval Consult details Narrative: 84yo F for Upper Endoscopy and Colonoscopy [facility] [place] ED 08/2024 with orthostatics, hypomagnesium. BP meds adjusted and magnesium repleted. PMFSH Active Problems Active Problems: All Active Problems Anemia (Acute) Left hip pain (Acute) Constipation (Acute) Lesion of lung (Acute) Cough (Acute) Past Medical History Medical History Bilateral carotid artery stenosis Acute headache HLD (hyperlipidemia) Carcinoid tumor Hypertension SIAD (syndrome of inappropriate antidiuresis) GERD (gastroesophageal reflux disease) IPMN (intraductal papillary mucinous neoplasm) Family History Family history of problems with anesthesia: No Surgical History Surgical History Hx of appendectomy Hx of cholecystectomy History of hip replacement Hx of hysterectomy History of colon resection Hx of colonoscopy History of esophagogastroduodenoscopy (EGD) History of Problems with Anesthesia: No Social History Social History (Updated 11/30/24 @ 16:19 by Christelle Berger RN) Household Members: Spouse Housing: House Are you a primary technical healthcare consultant to a significant other at home: No Do you presently have visiting nurse or other home services: No Alcohol intake: never Patient Tobacco Use Status: Former Tobacco user e-Cigarette/Vaping Use: Never Used Use of substances other than those prescribed or required for medical reasons: No Are you DNR?: No Advance Directives: Yes Advance Directives Information Provided: No Advance Directives on File: Yes Advance Directives Date on File: 06/11/24 Nutrition Risks: Surgical patient >75years service: No Meds Allergies Allergy/AdvReac Type Severity Reaction Status Date / Time levofloxacin [From LEVAQUIN] Allergy Severe FAINTING Verified 12/02/24 10:02 metoclopramide [From REGLAN] Allergy Severe PERSONALITY Verified 12/02/24 10:02 CHANGES-COMBATIVE Iodinated Contrast Media AdvReac Intermediate VERTIGO, Verified 12/02/24 10:02 [Iodinated Contrast Media - FLUSHING IV Dye] [id number] Reductase AdvReac Mild Muscle Verified 12/02/24 10:02 Inhibitor cramps Home Medications ?Medication ?Instructions ?Recorded ?Confirmed ?Last Taken ?Type allopurinol 300 mg tablet 300 mg PO DAILY 03/21/23 11/30/24 06/11/24 History biotin 10,000 mcg capsule 10,000 mcg PO DAILY 03/21/23 11/30/24 06/11/24 History doxazosin 2 mg tablet 2 mg PO DAILY 03/21/23 11/30/24 06/11/24 History valsartan 80 mg tablet 80 mg PO BID 03/21/23 11/30/24 06/11/24 History gabapentin 100 mg capsule 100 mg PO BEDTIME 12/12/23 11/30/24 06/11/24 History cholecalciferol (vitamin D3) 10 10 mcg PO DAILY 06/11/24 11/30/24 06/11/24 History mcg (400 unit) capsule fluticasone 250 mcg-salmeterol 50 1 ea inhalation BID 06/11/24 11/30/24 06/11/24 History mcg/dose blistr powdr for inhalation (Wixela Inhub) fluticasone propionate 50 1 spray intranasal BID 06/11/24 11/30/24 06/11/24 History mcg/actuation nasal spray,suspension magnesium chloride 71.5 mg 71.5 mg PO DAILY 06/11/24 11/30/24 06/11/24 History (magnesium chloride) tablet,delayed release (Slow-Mag) rosuvastatin 10 mg tablet 10 mg PO DAILY 06/11/24 11/30/24 06/11/24 History Exam Height,Weight and Vital Signs: Height 5 ft 4 in Weight 56.245 kg Pertinent Lab Results Pertinent Lab Results: Laboratory Tests 09/13/24 13:03 WBC 9.0 Hgb 8.6 L Hct 25.5 L Plt Count 246 Sodium 135 Potassium 4.6 Chloride 105 Carbon Dioxide 20 L BUN 20 H Creatinine 1.11 Narrative Narrative: US carotid duplex BI 2023 IMPRESSION: 1. 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 2. LEFT: Moderate, hemodynamically significant stenosis of the proximal left internal carotid artery corresponding to a 50-79% stenosis by velocity criteria. EKG 08/2024 Vent. Rate : 073 BPM Atrial Rate : 073 BPM P-R Int : 168 ms QRS Dur : 086 ms QT Int : 380 ms P-R-T Axes : 052 055 061 degrees QTc Int : 418 ms Normal sinus rhythm Normal ECG When compared with ECG of 11-JUN-2024 12:38, No significant change was found ECHO 2023 Conclusions: - Normal left ventricular cavity size. There is mildly increased left ventricular wall thickness. The left ventricular systolic function is hyperdynamic. The visually estimated ejection fraction is >70%. - Diastolic function is normal for age. - Normal right ventricular cavity size and systolic function. Assessment and Plan Assessment Anesthesia Assessment: Chart Reviewed Final Anesthetic Review Family History of Problems with Anesthesia: No History of Problems with Anesthesia: No Documented by User: Eric Payton MD 12/02/24 11:12 [facility] Past Medical History Medical History Bilateral carotid artery stenosis Acute headache HLD (hyperlipidemia) Carcinoid tumor Hypertension SIAD (syndrome of inappropriate antidiuresis) GERD (gastroesophageal reflux disease) IPMN (intraductal papillary mucinous neoplasm) Narrative: Fairly normal echo 06/22 Surgical History Surgical History Hx of appendectomy Hx of cholecystectomy History of hip replacement Hx of hysterectomy History of colon resection Hx of colonoscopy History of esophagogastroduodenoscopy (EGD) History of Problems with Anesthesia: No Social History Social History (Updated 11/30/24 @ 16:19 by Christelle Berger RN) Household Members: Spouse Housing: House Are you a primary technical healthcare consultant to a significant other at home: No Do you presently have visiting nurse or other home services: No Alcohol intake: never Patient Tobacco Use Status: Former Tobacco user e-Cigarette/Vaping Use: Never Used Use of substances other than those prescribed or required for medical reasons: No Are you DNR?: No Advance Directives: Yes Advance Directives Information Provided: No Advance Directives on File: Yes Advance Directives Date on File: 06/11/24 Nutrition Risks: Surgical patient >75years service: No Meds Allergies Allergy/AdvReac Type Severity Reaction Status Date / Time levofloxacin [From LEVAQUIN] Allergy Severe FAINTING Verified 12/02/24 10:02 metoclopramide [From REGLAN] Allergy Severe PERSONALITY Verified 12/02/24 10:02 CHANGES-COMBATIVE Iodinated Contrast Media AdvReac Intermediate VERTIGO, Verified 12/02/24 10:02 [Iodinated Contrast Media - FLUSHING IV Dye] [id number] Reductase AdvReac Mild Muscle Verified 12/02/24 10:02 Inhibitor cramps Home Medications ?Medication ?Instructions ?Recorded ?Confirmed ?Last Taken ?Type allopurinol 300 mg tablet 300 mg PO DAILY 03/21/23 11/30/24 06/11/24 History biotin 10,000 mcg capsule 10,000 mcg PO DAILY 03/21/23 11/30/24 06/11/24 History doxazosin 2 mg tablet 2 mg PO DAILY 03/21/23 11/30/24 06/11/24 History valsartan 80 mg tablet 80 mg PO BID 03/21/23 11/30/24 06/11/24 History gabapentin 100 mg capsule 100 mg PO BEDTIME 12/12/23 11/30/24 06/11/24 History cholecalciferol (vitamin D3) 10 10 mcg PO DAILY 06/11/24 11/30/24 06/11/24 History mcg (400 unit) capsule fluticasone 250 mcg-salmeterol 50 1 ea inhalation BID 06/11/24 11/30/24 06/11/24 History mcg/dose blistr powdr for inhalation (Wixela Inhub) fluticasone propionate 50 1 spray intranasal BID 06/11/24 11/30/24 06/11/24 History mcg/actuation nasal spray,suspension magnesium chloride 71.5 mg 71.5 mg PO DAILY 06/11/24 11/30/24 06/11/24 History (magnesium chloride) tablet,delayed release (Slow-Mag) rosuvastatin 10 mg tablet 10 mg PO DAILY 06/11/24 11/30/24 06/11/24 History Exam Airway Mallampati Class: II TM Dist: <=3cm Neck ROM: Full Denture: Upper Heart: ok Lungs: ok Assessment and Plan Assessment Anesthesia Assessment: Anesthesia Plan Discussed Final Anesthetic Review History of Problems with Anesthesia: No NPO: Yes ASA Class: III Final Preanesthetic Review: No Changes in Pt Med Stat, Meds/Allgs Chart Reviewed, Consent Obtained/Reviewed and Anes Risks/Benef Reviewed Patient Risk: Intermediate Procedure Risk: Intermediate Anesthetic Plan Anesthetic Plan: Agree w/ Assess. and Plan and TIVA Disposition: Standard PACU
[2024-12-02 10:02] VITALS: BMI 21.8
[2024-12-02] MEDS: Lactated Ringers 1,000 ML 100 ML IVCONT (10:23)
[2024-12-02 10:25] VITALS: BP 153/56; PULSE 79; RESP 18; TEMP 36.6; O2SAT 99
[2024-12-02 10:43] LABS: Anion Gap 15 (12-20); Carbon Dioxide 23 mmol/L (22-29); Chloride 106 mmol/L (96-108); Magnesium 1.5 mg/dL (1.6-2.6); Potassium 4.2 mmol/L (3.3-5.1); Sodium 140 mmol/L (135-145)
--- NOTE | 2024-12-02 10:54 | MHC.SHP ---
Pre-Procedural Eval Section A - 24 Hr Update-Section A only Date of Service: 12/02/24 Section B - Complete if H&P > 30 days Chief Complaint: anemia, Relevant Family History (Specify if Yes): No Relevant Social History: None Present Medications: see Short Stay Collaborative assessment Medical History: Significant History (HLD (hyperlipidemia) Carcinoid tumor Hypertension SIAD (syndrome of inappropriate antidiuresis) GERD (gastroesophageal reflux disease) IPMN (intraductal papillary mucinous neoplasm)) History of Previous Operations: Relevant previous surgery/procedure and date(s) ( Hx of appendectomy Hx of cholecystectomy History of hip replacement Hx of hysterectomy History of colon resection Hx of colonoscopy History of esophagogastroduodenoscopy (EGD)) Allergies: Allergies Allergy/AdvReac Type Severity Reaction Status Date / Time levofloxacin [From LEVAQUIN] Allergy Severe FAINTING Verified 12/02/24 10:02 metoclopramide [From REGLAN] Allergy Severe PERSONALITY Verified 12/02/24 10:02 CHANGES-COMBATIVE Iodinated Contrast Media AdvReac Intermediate VERTIGO, Verified 12/02/24 10:02 [Iodinated Contrast Media - FLUSHING IV Dye] Gpalbfu-FAN-EeI Reductase AdvReac Mild Muscle Verified 12/02/24 10:02 Inhibitor cramps Review of Systems Sugical H&P ROS: Negative: Constitution, Cardiovascular, Respiratory, Neurological, Psychiatric, Hem-Onc, Allergic/Immunologic, Gastrointestinal, Genitourinary, Musculoskeletal, Integumentary, Endocrine and Eyes/Ears/Nose/Throat Exam Surgical H&P Exam: Normal: HEENT, Normal: Heart, Normal: Lungs, Normal: Extremities, Normal: Abdomen, Normal: Skin and Normal: Neurological Plan Diagnosis/Plan: Unchanged I have reviewed the history and physical and performed a pertinent physical examination on my patient. No changes have occurred unless specified. Time Spent With Patient Time: Total time managing care of this patient today ____ minutes.
--- NOTE | 2024-12-02 11:27 | HO.OPN-COLON ---
Colonoscopy Operative Note Operative Note Date of Service: 12/02/24 Narrative: Operative Information Procedure Description: EGD, Colonoscopy Indication: anemia Anesthesia: MAC FLEXIBLE TRANSORAL UPPER GASTROINTESTINAL ENDOSCOPY AND COLONOSCOPY PROCEDURE NOTE UPPER ENDOSCOPY Consent: Indications for the procedure and potential complications of bleeding, perforation, reaction to medications and missed diagnosis were discussed with the patient and informed consent was obtained. Instrument: Olympus GIF H 190 J mid size upper endoscope Monitoring: Vital signs and clinical assessment, continuous EKG monitoring, Pulse oximetry, Carbon Dioxide monitoring and blood pressure monitoring were done throughout the procedure. Procedure: The patient was placed in the left lateral decubitis position and pre-procedure medications were administered and a bite block was placed. The endoscope was inserted into the mouth and advanced under direct vision to the third part of duodenum. A careful inspection was made as the upper endoscope was withdrawn including a retroflexed examination of the proximal stomach; Findings and interventions are described below. Findings: Larynx:normal Esophagus: GE junction at 37 cm, diaphragm hiatus at 37 cm, normal mucosa Stomach: atrophic gastritis at the antrum. Biopsies were obtained. Grade 2 flap valve on retroflexed examination of the cardia. Duodenum: Normal bulb and descending duodenum, bx taken, also 4-5 mm polypoid area removed with biopsy forceps Intervention: Biopsies as noted above, COLONOSCOPY Instrument: Olympus variable stiffness pediatric scope 190L Colonoscopy Monitoring: Vital signs and clinical assessment, continuous EKG monitoring, Pulse oximetry, Carbon Dioxide monitoring and blood pressure monitoring were done throughout the procedure. Colon withdrawal time was 27 minutes. Procedure: The patient was placed in the left lateral decubitis position and pre-procedure medications were administered. After a digital rectal examination of the ano-rectum, the video colonoscope was inserted into the rectum and advanced through the colon to the cecum/TI. The colonoscope was slowly withdrawn in a retrograde panoramic fashion and the colon mucosa was carefully examined including a retroflexed view of the rectum. Findings and interventions are described below. Procedure Difficulty:moderate Findings: Terminal Ileum-normal, bx taken Random colon bx taken due to granular appearance of mucosa Cecum:normal Ascending Colon: normal Transverse Colon -normal Descending Colon:normal Sigmoid Colon: x 8 sessile polyps noted measuring 8-10 mm. x 4 removed with cold forceps, x3 with cold biopsy forceps and x 1 was lifted with eleview and theh removed with cold snare Rectum: Retroflexion with small to medium internal hemorrhoids, grade I Anorectum - normal Colon preparation: Phelps Bowel Preparation Scale Right colon; 2 Transverse colon: 2 Left colon; 2 (0 = Unprepared colon segment with mucosa not seen due to solid stool that cannot be cleared. 1 = Portion of mucosa of the colon segment seen, but other areas of the colon segment not well seen due to staining, residual stool and/or opaque liquid. 2 = Minor amount of residual staining, small fragments of stool and/or opaque liquid, but mucosa of colon segment seen well. 3 = Entire mucosa of colon segment seen well with no residual staining, small fragments of stool or opaque liquid) Impression and Post Procedure Diagnosis: Endoscopy Findings: atrophic gastritis Colonoscopy Findings: colon polyps internal hemorrhoids Plan: Await Pathology results Repeat Colonoscopy in 1-2 years due to polyps or earlier if clinically indicated High fiber diet leaflet avoid straining at stool, epsom salts and sitz bath, anusol supps or cream no source of GI bleeding noted, can consider capsule if bx are negative Above findings were reviewed with the patient and relevant handouts were provided if indicated.
[2024-12-02 12:14] VITALS: BP 123/56; PULSE 67; RESP 18; TEMP 36.4; O2SAT 96
[2024-12-02 12:35] VITALS: BP 142/55; PULSE 71; RESP 16; TEMP 36.1; O2SAT 99
== END 2024-12-02 13:00 | disposition home or self-care (01) ==
PROVIDERS: Nurse Practitioner; PCP Family Medicine; Visit Provider Internal Medicine Gastroenterology
PROC: (CPT 45385; principal; 2024-12-02 12:40)
DX: D12.0 Benign neoplasm of cecum (principal); D12.5 Benign neoplasm of sigmoid colon; K62.1 Rectal polyp; K64.0 First degree hemorrhoids; K31.7 Polyp of stomach and duodenum; K29.40 Chronic atrophic gastritis without bleeding; D64.9 Anemia, unspecified; I10 Essential (primary) hypertension; E78.5 Hyperlipidemia, unspecified; I65.23 Occlusion and stenosis of bilateral carotid arteries; J45.909 Unspecified asthma, uncomplicated; Z87.891 Personal history of nicotine dependence
CPT/HCPCS: 45385; 45381; 45380; 43239; 36415; 80051; 83735; 88305; 88313; 88342; J2003; J2704; J3010

== ENCOUNTER → 2024-12-02 09:27 | Outpatient (BNV) | payer MEDICARE, SELFPAY | PROVIDERS: PCP Family Medicine; Visit Provider Internal Medicine Gastroenterology | DX: D64.9 Anemia, unspecified (principal); K29.70 Gastritis, unspecified, without bleeding; K31.7 Polyp of stomach and duodenum; D12.0 Benign neoplasm of cecum; D12.5 Benign neoplasm of sigmoid colon; K64.0 First degree hemorrhoids | CPT/HCPCS: 43239; 45380; 45381; 45385 ==

== ENCOUNTER 2024-12-20 12:17 | Outpatient (AMB) | payer MEDICARE, SELFPAY ==
--- NOTE | 2024-12-20 12:36 | A.OFFVIS_ITS ---
Vital Signs 12/20/24 12:45 Height 5 ft 4 in Weight 129 lb BMI 22.1 BP 130/60 Blood Pressure Location Rt brachial Position Sitting Pulse 64 Pulse Source Pulse Oximeter Pulse Oximetry (%) 100 Oxygen Delivery Method Room Air Intake Visit Reasons: S/P double; Dr. Macario Intake Note: ESTABLISHED PATIENT for s/p duo Chief Complaint; Pt reports sx are well controlled. No GI concerns at this time. 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, was gettign serial chromogranin checks last EGD,o 2019--no recurrence of NET< small tubular adenoma removed she also had hx of imaging with chronic pancreatitis and possible IPMN, slightly dilated panc duct with recent MRI revealing increase in size of cysts in the uncinate and tail of pancreas I ordered a CT chest due to CXR with nodular density and hx of low NA CT chest revealed prominent rib without any lung lesions, scarrign noted, increased biliary dilation and numerous pancreas cysts EGD/Colonoscopy;06/2023 Endoscopy Findings: duodenal polyp atrophic gastritis esophagitis Colonoscopy Findings: polyps internal hemorrhoids Pathology; A. Duodenum, polyp: Superficial fragments of denuded small intestinal mucosa with focal active inflammation; negative for dysplasia. B. Duodenum, biopsy: Duodenal mucosa within normal limits. C. Stomach, biopsy: Antral-type and oxyntic mucosa within normal limits; no Helicobacter organisms seen. D. EG junction, biopsy: - Cardiac-type mucosa with moderate chronic active inflammation and ulceration; no intestinal metaplasia seen. - Ulcerative esophagitis. E. Esophagus, distal, biopsy: Squamous epithelium within normal limits; no inflammation seen. F. Colon, transverse, polypectomies: Tubular adenomata; negative for high-grade dysplasia or carcinoma. G. Colon, ascending polyp, biopsy: Tubular adenoma; negative for high-grade dysplasia or carcino SHe passed out and had EGD and sigmoidoscopy 08/21 at [facility] path was consistent with ischemic colitis EGD/[place] 2024: Endoscopy Findings: atrophic gastritis Colonoscopy Findings: colon polyps internal hemorrhoids path: tubular adenomas, no active carcinoid she had apptm with pancreas center [facility] [place], [place]--offered surgery but refused INTERIM: she has uterine prolapse and waiting for surgery options energy is better she is getting procrit shots appetite is fair no abdominal pain overall she is doing v well EXAM: GENERAL: The patient is relaxed VITAL SIGNS:see workflow HEENT: Nonicteric sclerae, PERRLA, EOMI. Oropharynx clear. Moist mucous membranes. Conjunctivae appear pale. No thyroid mass. soft bruit left carotid CHEST: Chest wall is nontender. HEART: Regular rate and rhythm without murmurs. LUNGS: Clear to auscultation bilaterally. ABDOMEN: Soft, positive bowel sounds, tender LUQ and central abdomen, no organomegaly.no flank tenderness SKIN: No rash, no excessive bruising, petechiae, or purpura. NEUROLOGIC: Cranial nerves II-XII intact without motor/sensory deficit. A/P; 1/ High chromogranin 2/ IPMN< PD 6 mm, largest cyst about 4.3 cm in uncinate process, simple appearing and thinly septated, small filling defect in distsl cbd ?stone 3/ anemia and melena-resolved, no obvious found -- PLAN: 1/ she refuses capsule endoscopy at this time 2/ hold on ercp -no abdominal symptoms 3/ cont with procrit [facility] Medical History Bilateral carotid artery stenosis Acute headache HLD (hyperlipidemia) Carcinoid tumor Hypertension SIAD (syndrome of inappropriate antidiuresis) GERD (gastroesophageal reflux disease) IPMN (intraductal papillary mucinous neoplasm) Surgical History Hx of appendectomy Hx of cholecystectomy History of hip replacement Hx of hysterectomy History of colon resection Hx of colonoscopy History of esophagogastroduodenoscopy (EGD) Social History Household Members: Spouse Housing: House Are you a primary home care specialist to a significant other at home: No Do you presently have visiting nurse or other home services: No Alcohol intake: never Patient Tobacco Use Status: Former Tobacco user e-Cigarette/Vaping Use: Never Used Use of substances other than those prescribed or required for medical reasons: No Advance Directives: Yes Advance Directives Information Provided: No Advance Directives Date on File: 06/11/24 Healthcare Proxy: Yes service: No Physical Exam Vital Signs: Last Vital Signs Pulse 64 12/20/24 12:45 BP 130/60 12/20/24 12:45 Pulse Ox 100 12/20/24 12:45 Oxygen Delivery Method Room Air 12/20/24 12:45 BMI result Body Mass Index 22.1 Assessment & Plan Assessment & Plan (1) Anemia: Code(s): D64.9 - Anemia, unspecified Category: Medical Plan: as above Coding Level of Care Code Est Pt Level 3 (27748) Diagnoses Anemia D64.9
[2024-12-20 12:45] VITALS: BP 130/60; PULSE 64; O2SAT 100; BMI 22.1
== END 2024-12-20 13:14 | disposition home or self-care (01) ==
LOC: HO.HGI 12:18
PROVIDERS: PCP Family Medicine; Visit Provider Internal Medicine Gastroenterology
DX: D64.9 Anemia, unspecified (principal)
CPT/HCPCS: 99213

== ENCOUNTER → 2024-12-20 12:17 | Outpatient (BNVA) | payer MEDICARE, SELFPAY | PROVIDERS: PCP Family Medicine; Visit Provider Internal Medicine Gastroenterology | DX: D64.9 Anemia, unspecified (principal); I10 Essential (primary) hypertension; Z90.49 Acquired absence of other specified parts of digestive tract | CPT/HCPCS: 99212 ==

== ENCOUNTER 2025-08-15 08:57 | Outpatient (AMB) | payer MEDICARE, SELFPAY ==
--- NOTE | 2025-08-15 08:57 | A.OFFVIS_ITS ---
Vital Signs 08/15/25 09:00 Height 5 ft 4 in Weight 119 lb 0.794 oz BMI 20.4 BP 110/52 L Blood Pressure Location Lt brachial Position Sitting Pulse 86 Intake Visit Reasons: f/u Intake Note: Sola presents in the office as a follow up. CC: States that she has a stool FIT test and it came back positive. Constipation and sometimes diarrhea. Mechanical Test Technician Required: No Allergies levofloxacin (From LEVAQUIN) Allergy (Severe, Verified 08/15/25 09:01) FAINTING metoclopramide (From REGLAN) Allergy (Severe, Verified 08/15/25 09:01) PERSONALITY CHANGES-COMBATIVE Iodinated Contrast Media (Iodinated Contrast Media - IV Dye) Adverse Reaction (Intermediate, Verified 08/15/25 09:01) VERTIGO, FLUSHING Hzehrlw-MQH-JqS Reductase Inhibitor Adverse Reaction (Mild, Verified 08/15/25 09:01) Muscle cramps HPI HPI f/u: Details: 84 yr old f wth hx of HLp, HTN, osteoporosis, cholecystectomy, sigmoid colectomy w rectopexy, and asthma being seen for f/u RECAP Initially seen by me 11/2018 for abdo pain and abn bowel habit 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, was gettign serial chromogranin checks last EGD,o 2019--no recurrence of NET< small tubular adenoma removed she also had hx of imaging with chronic pancreatitis and possible IPMN, slightly dilated panc duct with recent MRI revealing increase in size of cysts in the uncinate and tail of pancreas I ordered a CT chest due to CXR with nodular density and hx of low NA CT chest revealed prominent rib without any lung lesions, scarrign noted, increased biliary dilation and numerous pancreas cysts EGD/Colonoscopy;06/2023 Endoscopy Findings: duodenal polyp atrophic gastritis esophagitis Colonoscopy Findings: polyps internal hemorrhoids Pathology; A. Duodenum, polyp: Superficial fragments of denuded small intestinal mucosa with focal active inflammation; negative for dysplasia. B. Duodenum, biopsy: Duodenal mucosa within normal limits. C. Stomach, biopsy: Antral-type and oxyntic mucosa within normal limits; no Helicobacter organisms seen. D. EG junction, biopsy: - Cardiac-type mucosa with moderate chronic active inflammation and ulceration; no intestinal metaplasia seen. - Ulcerative esophagitis. E. Esophagus, distal, biopsy: Squamous epithelium within normal limits; no inflammation seen. F. Colon, transverse, polypectomies: Tubular adenomata; negative for high-grade dysplasia or carcinoma. G. Colon, ascending polyp, biopsy: Tubular adenoma; negative for high-grade dysplasia or carcino SHe passed out and had EGD and sigmoidoscopy 08/21 at [facility] path was consistent with ischemic colitis EGD/[place] 2024: Endoscopy Findings: atrophic gastritis Colonoscopy Findings: colon polyps internal hemorrhoids path: tubular adenomas, no active carcinoid she had apptm with pancreas center [facility] [place]--offered surgery but refused INTERIM: she had bladder sling surgery and urine is flowing better she has chronic issues with constipation , no change appetite is fair no abdominal pain denies rectal bleeding, or melena she is taking iron tab every other day otherwise no major issues EXAM: GENERAL: The patient is relaxed VITAL SIGNS:see workflow HEENT: Nonicteric sclerae, PERRLA, EOMI. Oropharynx clear. Moist mucous membranes. Conjunctivae appear pale. No thyroid mass. soft bruit left carotid CHEST: Chest wall is nontender. HEART: Regular rate and rhythm without murmurs. LUNGS: Clear to auscultation bilaterally. ABDOMEN: Soft, positive bowel sounds, non tender no organomegaly.no flank tenderness SKIN: No rash, no excessive bruising, petechiae, or purpura. NEUROLOGIC: Cranial nerves II-XII intact without motor/sensory deficit. A/P; 1/ High chromogranin 2/ IPMN< PD 6 mm, largest cyst about 4.3 cm in uncinate process, simple appearing and thinly septated, small filling defect in distsl cbd ?stone 3/ anemia and melena-resolved, no obvious cause found PLAN: 1/ we rediscussed capsule endoscopy --she will consider ti 2/ hold on ercp -no abdominal symptoms 3/ cont with iron tab every other day, can take miralax and metamucil for constipation PFSH Medical History Bilateral carotid artery stenosis Acute headache HLD (hyperlipidemia) Carcinoid tumor Hypertension SIAD (syndrome of inappropriate antidiuresis) GERD (gastroesophageal reflux disease) IPMN (intraductal papillary mucinous neoplasm) Surgical History Hx of appendectomy Hx of cholecystectomy History of hip replacement Hx of hysterectomy History of colon resection Hx of colonoscopy History of esophagogastroduodenoscopy (EGD) Social History Household Members: Spouse Housing: House Are you a primary housekeeper child care to a significant other at home: No Do you presently have visiting nurse or other home services: No Alcohol intake: never Patient Tobacco Use Status: Former Tobacco user e-Cigarette/Vaping Use: Never Used Advance Directives Date on File: 06/11/24 service: No Physical Exam Vital Signs: Last Vital Signs Pulse 86 08/15/25 09:00 BP 110/52 L 08/15/25 09:00 BMI result Body Mass Index 20.4 Assessment & Plan Assessment & Plan (1) Anemia: Code(s): D64.9 - Anemia, unspecified Category: Medical Plan: as above Coding Level of Care Code Est Pt Level 4 (89753) Diagnoses Anemia D64.9
[2025-08-15 09:00] VITALS: BP 110/52; PULSE 86; BMI 20.4
== END 2025-08-15 10:05 | disposition home or self-care (01) ==
LOC: HO.HGI 08:57
PROVIDERS: PCP Family Medicine; Visit Provider Internal Medicine Gastroenterology
DX: D64.9 Anemia, unspecified (principal)
CPT/HCPCS: 99214

== ENCOUNTER → 2025-08-15 08:57 | Outpatient (BNVA) | payer MEDICARE, SELFPAY | PROVIDERS: PCP Family Medicine; Visit Provider Internal Medicine Gastroenterology | DX: D64.9 Anemia, unspecified (principal) | CPT/HCPCS: 99212 ==